=== PATIENT | male | born 1930 | race Caucasian/White ===

== ENCOUNTER 2017-06-28 15:00 | Inpatient (IN) | payer MEDICARE, OTHER ==
[~2017-06-28] VITALS: Ht 180.3 cm; Wt 95.0 kg
[2017-06-28] MEDS ORDERED: IV NORMAL SALINE 1,000ML 1,000 ML IV ONE (15:15)
--- NOTE | 2017-06-28 15:58 | RAD ---
Portable chest, 06/28/2017: History: Cough The patient is moderately rotated to the left. The heart size is normal. There is calcific plaquing of the aorta. The small left lower chest opacity may be a granuloma. There is minimal linear scarring or atelectasis in the left base. There is a suggestion of mild right infrahilar atelectasis/infiltrate, although poorly defined due to patient rotation and the overlying spine. No pleural fluid or pneumothorax is seen. Severe arthritic changes are present at the shoulders, worse on the right. IMPRESSION: Mild right infrahilar atelectasis/infiltrate.
[2017-06-28 15:59] LABS: INFLUENZA A PATIENT NEGATIVE (NEGATIVE); INFLUENZA B PATIENT NEGATIVE (NEGATIVE)
[2017-06-28] MEDS ORDERED: IPRATRPIUM/ALBUTEROL 0.5/2.5MG 3 ML NEBU. NEB ONE (16:00)
[2017-06-28] MEDS ORDERED: ASPI325T8 PO (16:10)
[2017-06-28] MEDS ORDERED: GUAI12003 PO (16:10)
[2017-06-28] MEDS ORDERED: CHOL500016 PO (16:10)
[2017-06-28] MEDS ORDERED: SERT100T PO (16:10)
[2017-06-28] MEDS ORDERED: LISI-334 PO (16:10)
[2017-06-28] MEDS ORDERED: NABU500T PO (16:10)
[2017-06-28] MEDS ORDERED: NYST1000 PO (16:10)
[2017-06-28] MEDS ORDERED: TRAM50TA PO (16:10)
[2017-06-28] MEDS ORDERED: ENOX40DI SQ (16:10)
[2017-06-28] MEDS ORDERED: VIT1CAPS12 PO (16:10)
[2017-06-28] MEDS ORDERED: HYDR25TA9 PO (16:10)
[2017-06-28] MEDS ORDERED: SIMV40TA3 PO (16:10)
[2017-06-28 16:15] LABS: BASO # 0.1 x10^3/uL (0.0-0.2); BASO % 1 % (0-3); EOS # 0.9 x10^3/uL (0.0-0.7); EOS % 8 % (0-3); HEMATOCRIT 37.6 % (39.0-53.0); HEMOGLOBIN 12.6 g/dL (13.0-17.5); LYMPH # 1.9 x10^3/uL (1.0-4.8); LYMPH % 18 % (24-48); MEAN CORPUSCULAR HEMOGLOBIN 31 pg (25-35); MEAN CORPUSCULAR HGB CONC 33 g/dL (31-37); MEAN CORPUSCULAR VOLUME 92 fL (79-100); MONO # 1.1 x10^3/uL (0.0-1.1); MONO % 10 % (0-9); NEUT # 6.7 x10^3uL (1.8-7.7); NEUT % 63 % (31-73); PLATELET COUNT 436 x10^3/uL (140-400); RED BLOOD COUNT 4.11 x10^6/uL (4.30-5.70); WHITE BLOOD COUNT 10.6 x10^3/uL (4.0-11.0)
[2017-06-28 16:24] LABS: CREATININE 1.4 mg/dL (0.7-1.3); GFR 48.1; POTASSIUM 4.5 mmol/L (3.5-5.1)
[2017-06-28] MEDS ORDERED: AZITHROMYCIN 250 MG TABLET. PO ONE (16:45)
[2017-06-28] MEDS ORDERED: IV NORMAL SALINE 50ML 50 ML ONE ×2 (16:52→17:53)
[2017-06-28] MEDS ORDERED: cefTRIAXone SODIUM 1 GM VIAL IV ONE (16:52)
--- NOTE | 2017-06-28 16:58 | PHYS DOC ---
Past History Past Medical History: No Pertinent History, High Cholesterol, Hip Fracture, Hypertension, Other Past Surgical History: Hip Replacement Alcohol Use: None Drug Use: None Adult General Chief Complaint Chief Complaint: COUGH HPI HPI Patient is a 86 year old M who presents with cough and shortness of breath over the past 2-3 weeks with particular worsening over the past 3 days. Arthritic hip fracture 3 weeks ago which resulted in a hip replacement and an extended hospital stay of 2 weeks and swing bed. He was discharged a week ago and [facility] a [facility] which is where he currently resides. Over the past 3 days he feels that his breathing has been worse. His symptoms are worse with activity and improved with rest. His cough is productive of greenish sputum. He also notes associated chest pain with cough. He describes occasional chills but no fever. He has no other associated symptoms. He has no exacerbating or alleviating factors. He is currently nonweightbearing due to his left hip fracture which is status post hip replacement. This repair was complicated due to reported osteoporosis which required a pin to be driven down the shaft of his femur. He had a right hip fracture 3 years ago which required 2 surgeries to repair. His daughter states that his nonweightbearing status is to prevent the need for a second surgery. He is hard of hearing and has macular degeneration which limited his history. Review of Systems Review of Systems Constitutional: Negative except history of present illness Eyes: Denies change in visual acuity, redness, or eye pain [] HENT: Denies nasal congestion or sore throat [] Respiratory: Negative except history of present illness Cardiovascular: No additional information not addressed in HPI [] GI: Denies abdominal pain, nausea, vomiting, bloody stools or diarrhea [] : Denies dysuria or hematuria [] Musculoskeletal: Denies back pain or joint pain [] Integument: Denies rash or skin lesions [] Neurologic: Denies headache, focal weakness or sensory changes [] Endocrine: Denies polyuria or polydipsia [] All other systems were reviewed and found to be within normal limits, except as documented in this note. Family History Family History Noncontributory Current Medications Current Medications Medications reviewed Current Medications Medications (Trade) Dose Ordered Sig/Eleanor Start Time Stop Time Status Last Admin Dose Admin Albuterol/ Ipratropium (Duoneb) 3 ml 1X ONCE 06/28/17 16:00 06/28/17 16:01 DC 06/28/17 16:04 3 ML Azithromycin (Zithromax) 500 mg 1X ONCE 06/28/17 16:45 06/28/17 16:46 DC Ceftriaxone Sodium 1 gm/ Sodium Chloride 50 ml @ 100 mls/hr 1X ONCE 06/28/17 16:45 06/28/17 17:14 Sodium Chloride 1,000 ml @ 1,000 mls/hr 1X ONCE 06/28/17 15:15 06/28/17 16:14 DC 06/28/17 15:15 1,000 MLS/HR Allergies Allergies Allergies Coded Allergies Type Severity Reaction Last Updated Verified No Known Drug Allergies 06/28/17 No Physical Exam Physical Exam Constitutional: Well developed, well nourished, non-toxic appearance. HENT: Normocephalic, atraumatic, bilateral external ears normal, oropharynx moist, no oral exudates, nose normal. [] Eyes: PERRLA, EOMI, conjunctiva normal, no discharge. [] Neck: Normal range of motion, no tenderness, supple, no stridor. [] Cardiovascular:Heart rate regular rhythm, no murmur [] Lungs & Thorax: Diminished sounds bilaterally with rhonchi noted in the right base, Mild shortness of breath with minimal activity such as sitting up in bed Abdomen: Bowel sounds normal, soft, no tenderness, no masses, no pulsatile masses. [] Skin: Warm, dry, no erythema, no rash. [] Extremities: No tenderness, no cyanosis, no clubbing, ROM intact, no edema. [] Neurologic: Alert and oriented X 2, he is currently nonweightbearing due to his recent left hip fracture, he is accompanied by his daughter who states that his mental status is at baseline Psychologic: Affect normal, judgement normal, mood normal. [] Current Patient Data Vital Signs Vital Signs Date Time Temp Pulse Resp B/P (MAP) Pulse Ox O2 Delivery O2 Flow Rate FiO2 06/28/17 16:04 98 Room Air 06/28/17 15:41 97.5 78 18 Lab Results Laboratory Tests Test 06/28/17 15:25 06/28/17 16:00 Influenza Type A (Rapid) Negative (NEGATIVE) Influenza Type B (Rapid) Negative (NEGATIVE) White Blood Count 10.6 x10^3/uL (4.0-11.0) Red Blood Count 4.11 x10^6/uL (4.30-5.70) L Hemoglobin 12.6 g/dL (13.0-17.5) L Hematocrit 37.6 % (39.0-53.0) L Mean Corpuscular Volume 92 fL (79-100) Mean Corpuscular Hemoglobin 31 pg (25-35) Mean Corpuscular Hemoglobin Concent 33 g/dL (31-37) Red Cell Distribution Width 15.0 % (11.5-14.5) H Platelet Count 436 x10^3/uL (140-400) H Neutrophils (%) (Auto) 63 % (31-73) Lymphocytes (%) (Auto) 18 % (24-48) L Monocytes (%) (Auto) 10 % (0-9) H Eosinophils (%) (Auto) 8 % (0-3) H Basophils (%) (Auto) 1 % (0-3) Neutrophils # (Auto) 6.7 x10^3uL (1.8-7.7) Lymphocytes # (Auto) 1.9 x10^3/uL (1.0-4.8) Monocytes # (Auto) 1.1 x10^3/uL (0.0-1.1) Eosinophils # (Auto) 0.9 x10^3/uL (0.0-0.7) H Basophils # (Auto) 0.1 x10^3/uL (0.0-0.2) Sodium Level 141 mmol/L (136-145) Potassium Level 4.5 mmol/L (3.5-5.1) Chloride Level 103 mmol/L (98-107) Carbon Dioxide Level 28 mmol/L (21-32) Anion Gap 10 (6-14) Blood Urea Nitrogen 43 mg/dL (8-26) H Creatinine 1.4 mg/dL (0.7-1.3) H Estimated GFR (Cockcroft-Gault) 48.1 Glucose Level 114 mg/dL (70-99) H Calcium Level 9.0 mg/dL (8.5-10.1) EKG EKG [] Radiology/Procedures Radiology/Procedures Chest x-ray Impressions: Right-sided infiltrate Course & Med Decision Making Course & Med Decision Making Pertinent Labs and Imaging studies reviewed. (See chart for details) Due to his recent and prolonged hospital stay Marc is at risk for resistant infection. Symptoms are most consistent with hospital associated pneumonia. Initially an intermittent catheterization was done to obtain a urine sample however no urine was obtained. Bladder scan followed showing 500 mL. Due to concern for obstruction an indwelling catheter was placed. Dragon Disclaimer Dragon Disclaimer This electronic medical record was generated, in whole or in part, using a voice recognition dictation system. Departure Departure: Impression: Primary Impression: Healthcare-associated pneumonia Disposition: ADMITTED INPATIENT Condition: STABLE Referrals: JENSEN VALDEZ DO (PCP) ANITA ESCOTO MD Jun 28, 2017 16:58
[2017-06-28] MEDS ORDERED: VANCOMYCIN 1 GM in IV NORMAL SALINE 250ML 250 ML IV ONE (17:30)
[2017-06-28] MEDS ORDERED: PIPERACILLIN/TAZOBACTAM 3.375 GM in IV NORMAL SALINE 50ML 50 ML IV ONE (17:45)
[2017-06-28] MEDS ORDERED: PIPERACILLIN/TAZOBACTAM 3.375 GM VIAL IV ONE (17:54)
[2017-06-28 18:24] LABS: BILIRUBIN,URINE NEG (NEG); CLARITY,URINE CLEAR; COLOR,URINE YELLOW; GLUCOSE,URINE NEG (NEG)
[2017-06-28 18:25] LABS: NITRITE,URINE NEG (NEG); UROBILINOGEN,URINE 0.2 mg/dL (0.2 mg/dL)
[2017-06-28 18:26] LABS: BACTERIA,URINE 0 /HPF (0-FEW); SQUAMOUS EPITHELIAL CELL,UR FEW /LPF; WBC,URINE OCC /HPF (0-4)
[2017-06-28 19:12] VITALS: BP 96/48
[2017-06-28] MEDS ORDERED: ONDANSETRON PF 4 MG/2 ML VIAL. IV PRN (19:15)
[2017-06-28] MEDS: IV NORMAL SALINE 1,000ML 1,000 ML IV SCH ×3 (19:30→22:34)
[2017-06-28] MEDS ORDERED: ENOX30DI3 SQ (20:53)
[2017-06-28] MEDS ORDERED: MULT1TAB52 PO ×2 (20:53)
[2017-06-28] MEDS ORDERED: NYST15PO9 TP (20:53)
[2017-06-28] MEDS ORDERED: PIP/TAZO PER PHARMACY MC PRN (21:15)
[2017-06-28] MEDS ORDERED: IV NORMAL SALINE 500ML 500 ML IV PRN (21:30)
[2017-06-28] MEDS ORDERED: NOREPINEPHRINE BITARTRATE 16 MG in IV NORMAL SALINE 250ML 250 ML IV PRN (22:00)
[2017-06-28 22:12] VITALS: BP 123/68
[2017-06-28] MEDS: ENOXAPARIN 40 MG/0.4 ML DISP.SYRIN. SQ SCH (22:32)
[2017-06-28] MEDS: SIMVASTATIN 40 MG TABLET. PO SCH (22:32)
[2017-06-28] MEDS: PIPERACILLIN/TAZOBACTAM 4.5 GM in IV NORMAL SALINE 50ML 50 ML IV SCH (23:41)
[2017-06-29] MEDS ORDERED: IPRATRPIUM/ALBUTEROL 0.5/2.5MG 3 ML NEBU. ONE ×2 (00:13→05:20)
[2017-06-29] MEDS: IV NORMAL SALINE 1,000ML 1,000 ML IV SCH ×3 (00:53→12:13)
[2017-06-29 05:24] VITALS: BP 149/67
[2017-06-29] MEDS: PIPERACILLIN/TAZOBACTAM 4.5 GM in IV NORMAL SALINE 50ML 50 ML IV SCH ×3 (05:43→18:51)
[2017-06-29] MEDS: IPRATRPIUM/ALBUTEROL 0.5/2.5MG 3 ML NEBU. NEB SCH ×4 (06:00→21:06)
[2017-06-29 06:27] LABS: BASO # 0.1 x10^3/uL (0.0-0.2); BASO % 1 % (0-3); EOS # 0.5 x10^3/uL (0.0-0.7); EOS % 5 % (0-3); HEMATOCRIT 30.3 % (39.0-53.0); HEMOGLOBIN 10.1 g/dL (13.0-17.5); LYMPH # 1.8 x10^3/uL (1.0-4.8); LYMPH % 19 % (24-48); MEAN CORPUSCULAR HEMOGLOBIN 31 pg (25-35); MEAN CORPUSCULAR HGB CONC 33 g/dL (31-37); MEAN CORPUSCULAR VOLUME 91 fL (79-100); MONO % 10 % (0-9); NEUT # 6.4 x10^3uL (1.8-7.7); NEUT % 65 % (31-73); PLATELET COUNT 349 x10^3/uL (140-400); RED BLOOD COUNT 3.32 x10^6/uL (4.30-5.70); RED CELL DISTRIBUTION WIDTH 14.7 % (11.5-14.5); WHITE BLOOD COUNT 9.9 x10^3/uL (4.0-11.0)
[2017-06-29 06:36] LABS: CALCIUM 8.1 mg/dL (8.5-10.1); CREATININE 1.2 mg/dL (0.7-1.3); GFR 57.4; POTASSIUM 3.8 mmol/L (3.5-5.1)
[2017-06-29] MEDS: LACTOBACILLUS RHAMNOSUS GG 1 CAPSULE. PO SCH ×2 (08:23→21:16)
[2017-06-29] MEDS: ASPIRIN 325 MG TABLET PO SCH ×2 (08:23→21:16)
[2017-06-29] MEDS: CHOLECALCIFEROL (VITAMIN D3) 1,000 UNIT TABLET PO SCH (08:23)
[2017-06-29] MEDS: SERTRALINE 100 MG TABLET. PO SCH (08:23)
[2017-06-29] MEDS: NYSTATIN TOPICAL POWDER 15GM BOTTLE. TP SCH ×2 (08:24→21:17)
[2017-06-29] MEDS: traMADol 50 MG TABLET PO PRN (08:43)
[2017-06-29] MEDS: guaiFENesin DM 600/30MG 1 TAB TAB.ER.12H PO SCH ×2 (09:00→21:16)
[2017-06-29] MEDS ORDERED: IOHEXOL 300 MG/ML 75 ML VIAL. IV ONE (10:00)
[2017-06-29] MEDS ORDERED: CONTRAST GIVEN MC PRN (10:15)
--- NOTE | 2017-06-29 11:05 | RAD ---
CTA chest with contrast 06/29/2017 Clinical indication: Dyspnea, shortness of breath. Comparison: Chest x-ray 06/28/2017 Technique: Multiple CTA images of the chest were obtained following the intravenous administration of 60 mL Omnipaque 300. MIPS were obtained of the chest. PQRS Compliance Statement: One or more of the following individualized dose reduction techniques were utilized for this examination: 1. Automated exposure control 2. Adjustment of the mA and/or kV according to patient size 3. Use of iterative reconstruction technique CTA chest findings: There is suboptimal evaluation of the subsegmental pulmonary arteries. The central and major segmental pulmonary arteries are patent without focal filling defect. No evidence of right heart strain. Heart size is normal without significant pericardial effusion. There are three-vessel coronary artery calcifications. The thoracic aorta is normal in caliber with moderate diffuse calcified atheromatous disease. No axillary, mediastinal or obvious hilar lymphadenopathy. Examination of the parenchyma is limited due to respiratory motion. Central airways are patent. There are patchy peribronchial vascular opacities in the dependent lower lobes. Scattered areas of pleural-parenchymal scarring throughout both lungs. There are trace bilateral pleural effusions. There are no destructive osseous lesions. There is an intraosseous hemangioma at T4. There is an ununited age-indeterminate nondisplaced fracture lateral left third rib. Age-indeterminate ununited nondisplaced left lateral seventh rib fracture deformity. There is a chronic comminuted fracture of the proximal right humerus. Age-indeterminate ununited lateral right rib fracture deformity. Impression: 1. Suboptimal evaluation of subsegmental pulmonary arteries due to motion. No central or major segmental pulmonary artery filling defect to suggest pulmonary embolism. 2. Patchy bibasilar peribronchial vascular opacities which may represent aspiration or multifocal infection. 3. Trace pleural effusions. 4. Coronary artery calcifications. 5. Chronic comminuted ununited proximal right humeral fracture and multiple nondisplaced age-indeterminate bilateral rib fracture deformities. Clinical correlation is recommended
[2017-06-29 11:25] VITALS: BP 110/62
[2017-06-29] MEDS ORDERED: MELOXICAM 7.5 MG TABLET PO SCH (11:30)
[2017-06-29] MEDS ORDERED: hydroCHLOROthiazide 25 MG TABLET PO SCH (11:30)
[2017-06-29] MEDS ORDERED: MULTIVITAMIN with MINERAL TABLET. PO SCH (11:30)
[2017-06-29] MEDS: LISINOPRIL 20 MG TABLET PO SCH (11:40)
--- NOTE | 2017-06-29 14:20 | HP ---
ADMIT DATE: 06/28/2017 REASON FOR ADMISSION: The patient states cough. HISTORY OF PRESENT ILLNESS: This is an 86-year-old gentleman who resides at [facility] who states that yesterday they could not keep him awake and that he was coughing, bringing up some thick sputum and so he was brought to the hospital and found to have an x-ray suspicious for pneumonia. PAST MEDICAL HISTORY: The patient broke his left leg 3 weeks ago and was in the hospital that time where it was repaired and he has been undergoing therapy at [facility]. He also has a history of a broken right hip. Other medical problems include anemia, hypertension, weakness, osteoarthritis, macular degeneration with vision impairment, depression, former smoker, hyperlipidemia, significant fall risk and hard of hearing, does not wear hearing aids. ALLERGIES: None. MEDICATIONS: Reviewed and are available on the MAR. SOCIAL HISTORY: Again, he is at [facility]. 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 He did previously live in a house with his daughter where he had his own apartment for him, but again like I said he has been at [facility], undergoing rehab. REVIEW OF SYSTEMS: As per the HPI. the patient states he has a slight sore throat. Denies fever, positive cough, positive for thick sputum. Otherwise, some pain in the left leg, otherwise negative. OBJECTIVE: VITAL SIGNS: Blood pressure 110/62, pulse 92, respirations 22, pulse ox 92% on room air, height 71 inches, weight 211.25 pounds. GENERAL: Pleasant elderly male who is slightly short of breath, hearing is slightly impaired, but easily understand loud words. HEENT: His pupils are small. His eyes are clear. His nose is patent. Throat was clear. NECK: Supple. LUNGS: With a few scattered wheezes. CARDIOVASCULAR: Regular rhythm and rate with a 2/6 systolic murmur. ABDOMEN: Soft, nontender. EXTREMITIES: With 2+ edema. LABORATORY DATA: CBC: White blood cell count 10.6, upper limit of normal; hemoglobin 10.1; hematocrit 30.3. Chemistry: Lactic acid was initially 2.2. BUN was 43, creatinine 1.4, now 33 and 1.2. Urinalysis clear. IMAGING: Chest x-ray, CT of the chest, no PE, but patchy bibasilar opacities representing probable aspiration, pneumonia or multifocal infection. ASSESSMENT: 1. Lactic acidosis. 2. Acute kidney injury secondary to volume depletion. 3. Aspiration pneumonia. 4. Status post fracture of the left leg, undergoing rehabilitation. 5. Significant deep venous thrombosis risk. 6. Pain. 7. Acute respiratory failure. PLAN: IV antibiotics, oxygen, DVT prophylaxis. AUGUSTO LAU DO DR: DARON/cleo JOB#: [id number] / [id number]
[2017-06-29] MEDS: ACETAMINOPHEN 325 MG TABLET PO SCH ×2 (14:40→21:16)
[2017-06-29 14:53] VITALS: BP 128/69
[2017-06-29 18:43] VITALS: BP 110/65
[2017-06-29] MEDS ORDERED: NABUMETONE PO SCH (21:00)
[2017-06-29] MEDS: SIMVASTATIN 40 MG TABLET. PO SCH (21:16)
[2017-06-29] MEDS: ENOXAPARIN 40 MG/0.4 ML DISP.SYRIN. SQ SCH (21:17)
[2017-06-29 23:20] VITALS: BP 128/65
[2017-06-30] MEDS: PIPERACILLIN/TAZOBACTAM 4.5 GM in IV NORMAL SALINE 50ML 50 ML IV SCH ×5 (00:11→23:56)
[2017-06-30] MEDS: IV NORMAL SALINE 1,000ML 1,000 ML IV SCH ×3 (01:00→20:39)
[2017-06-30 05:09] VITALS: BP 133/55
[2017-06-30] MEDS: ACETAMINOPHEN 325 MG TABLET PO SCH ×3 (05:38→20:35)
[2017-06-30] MEDS: IPRATRPIUM/ALBUTEROL 0.5/2.5MG 3 ML NEBU. NEB SCH ×4 (05:48→20:00)
[2017-06-30 07:10] LABS: BASO # 0.1 x10^3/uL (0.0-0.2); BASO % 1 % (0-3); EOS % 11 % (0-3); HEMATOCRIT 31.5 % (39.0-53.0); HEMOGLOBIN 10.8 g/dL (13.0-17.5); LYMPH # 2.7 x10^3/uL (1.0-4.8); LYMPH % 28 % (24-48); MEAN CORPUSCULAR HEMOGLOBIN 31 pg (25-35); MEAN CORPUSCULAR HGB CONC 34 g/dL (31-37); MEAN CORPUSCULAR VOLUME 91 fL (79-100); MONO # 0.9 x10^3/uL (0.0-1.1); MONO % 10 % (0-9); NEUT % 51 % (31-73); PLATELET COUNT 313 x10^3/uL (140-400); RED BLOOD COUNT 3.46 x10^6/uL (4.30-5.70); RED CELL DISTRIBUTION WIDTH 14.7 % (11.5-14.5); WHITE BLOOD COUNT 9.7 x10^3/uL (4.0-11.0)
[2017-06-30 07:32] LABS: ALBUMIN 2.3 g/dL (3.4-5.0); ALBUMIN/GLOBULIN RATIO 0.5 (1.0-1.7); CALCIUM 8.4 mg/dL (8.5-10.1); CREATININE 1.3 mg/dL (0.7-1.3); GFR 52.3; MAGNESIUM 1.9 mg/dL (1.8-2.4); TOTAL BILIRUBIN 0.6 mg/dL (0.2-1.0); TOTAL PROTEIN 6.6 g/dL (6.4-8.2)
[2017-06-30] MEDS: SERTRALINE 100 MG TABLET. PO SCH (08:20)
[2017-06-30] MEDS: MULTIVITAMIN I-VITE TABLET. PO SCH (08:20)
[2017-06-30] MEDS: LACTOBACILLUS RHAMNOSUS GG 1 CAPSULE. PO SCH ×2 (08:21→20:35)
[2017-06-30] MEDS: guaiFENesin DM 600/30MG 1 TAB TAB.ER.12H PO SCH ×2 (08:21→20:35)
[2017-06-30] MEDS: LISINOPRIL 20 MG TABLET PO SCH (08:22)
[2017-06-30] MEDS: ASPIRIN 325 MG TABLET PO SCH ×2 (08:23→20:35)
[2017-06-30] MEDS: CHOLECALCIFEROL (VITAMIN D3) 1,000 UNIT TABLET PO SCH (08:23)
[2017-06-30] MEDS: NYSTATIN TOPICAL POWDER 15GM BOTTLE. TP SCH ×2 (10:39→20:39)
[2017-06-30 10:59] VITALS: BP 135/65
[2017-06-30] MEDS ORDERED: FUROSEMIDE 40 MG/4 ML VIAL IVP ONE (13:15)
[2017-06-30 14:35] VITALS: BP 137/68
[2017-06-30 20:04] VITALS: BP_SYST 95; BP_SYST 98; BP_DIAS 50; BP_DIAS 57
[2017-06-30] MEDS: SIMVASTATIN 40 MG TABLET. PO SCH (20:35)
[2017-06-30] MEDS: ENOXAPARIN 40 MG/0.4 ML DISP.SYRIN. SQ SCH (20:36)
[2017-06-30 23:35] VITALS: BP 135/61
[2017-06-30] MEDS: traMADol 50 MG TABLET PO PRN (23:57)
--- NOTE | 2017-07-01 02:22 | PN ---
DATE: 06/30/2017 PROBLEMS: 1. Lactic acidosis. 2. Acute kidney injury secondary to volume depletion. 3. Aspiration pneumonia. 4. Status post fracture of the left leg. 5. Deep venous thrombosis risk. 6. Pain management. 7. Acute respiratory failure. 8. Bilateral deep tissue injuries of the heel. 9. Stage II small pressure ulcer of the coccyx. SUBJECTIVE: The patient is an 86-year-old male who was admitted for underlying pneumonia. He has been well hydrated now to the point of fluid overload as he has been getting IV fluids and his hydrochlorothiazide was held. The wound nurse has seen him and treated his wounds. He will need heel pads, otherwise he does not have any specific complaints. OBJECTIVE: VITAL SIGNS: Blood pressure 135/55, pulse 93, temperature 97.9, respirations 20, pulse ox 93% on room air. His weight is pending. GENERAL: Color is pale. He is alert. HEENT: His tongue is moist. NECK: Supple. LUNGS: With a few scattered wheezes. CARDIOVASCULAR: Regular rhythm and rate with a 2/6 systolic murmur. ABDOMEN: Large and obese. EXTREMITIES: With 3+ edema. LABORATORY DATA: Hemoglobin 10.8, hematocrit 31.5. PLAN: IV Lasix. Continue antibiotics, PT, OT, wound care, plan for discharge. AUGUSTO LAU DO DR: DARON/cleo JOB#: [id number] / [id number]
[2017-07-01] MEDS: IV NORMAL SALINE 1,000ML 1,000 ML IV SCH (03:43)
[2017-07-01] MEDS: IPRATRPIUM/ALBUTEROL 0.5/2.5MG 3 ML NEBU. NEB SCH ×2 (05:51→09:47)
[2017-07-01 06:05] VITALS: BP 156/72
[2017-07-01] MEDS: PIPERACILLIN/TAZOBACTAM 4.5 GM in IV NORMAL SALINE 50ML 50 ML IV SCH (06:05)
[2017-07-01] MEDS: ACETAMINOPHEN 325 MG TABLET PO SCH (06:05)
[2017-07-01 06:25] LABS: BASO # 0.1 x10^3/uL (0.0-0.2); BASO % 1 % (0-3); EOS # 0.9 x10^3/uL (0.0-0.7); EOS % 7 % (0-3); HEMATOCRIT 32.9 % (39.0-53.0); HEMOGLOBIN 10.9 g/dL (13.0-17.5); LYMPH # 1.7 x10^3/uL (1.0-4.8); LYMPH % 15 % (24-48); MEAN CORPUSCULAR HEMOGLOBIN 30 pg (25-35); MEAN CORPUSCULAR HGB CONC 33 g/dL (31-37); MEAN CORPUSCULAR VOLUME 91 fL (79-100); MONO # 1.2 x10^3/uL (0.0-1.1); MONO % 10 % (0-9); NEUT # 8.2 x10^3uL (1.8-7.7); NEUT % 68 % (31-73); PLATELET COUNT 340 x10^3/uL (140-400); RED BLOOD COUNT 3.61 x10^6/uL (4.30-5.70); RED CELL DISTRIBUTION WIDTH 14.6 % (11.5-14.5)
[2017-07-01 06:39] LABS: ALBUMIN 2.4 g/dL (3.4-5.0); ALBUMIN/GLOBULIN RATIO 0.5 (1.0-1.7); CALCIUM 8.5 mg/dL (8.5-10.1); CREATININE 1.3 mg/dL (0.7-1.3); GFR 52.3; MAGNESIUM 1.9 mg/dL (1.8-2.4); POTASSIUM 4.2 mmol/L (3.5-5.1); TOTAL BILIRUBIN 0.6 mg/dL (0.2-1.0)
[2017-07-01] MEDS: SERTRALINE 100 MG TABLET. PO SCH (08:14)
[2017-07-01] MEDS: ASPIRIN 325 MG TABLET PO SCH (08:14)
[2017-07-01] MEDS: MULTIVITAMIN I-VITE TABLET. PO SCH (08:14)
[2017-07-01] MEDS: LACTOBACILLUS RHAMNOSUS GG 1 CAPSULE. PO SCH (08:14)
[2017-07-01] MEDS: guaiFENesin DM 600/30MG 1 TAB TAB.ER.12H PO SCH (08:14)
[2017-07-01] MEDS: LISINOPRIL 20 MG TABLET PO SCH (08:15)
[2017-07-01] MEDS: CHOLECALCIFEROL (VITAMIN D3) 1,000 UNIT TABLET PO SCH (08:15)
[2017-07-01] MEDS: NYSTATIN TOPICAL POWDER 15GM BOTTLE. TP SCH (08:21)
--- NOTE | 2017-07-01 08:32 | RAD ---
Single view of the Chest 07/01/2017 3:12 PM Indication: pneumonia Comparison: Chest radiograph, June 28, 2017 Findings: Lordotic projection noted. Decreased inspiratory volumes noted in the interim. No pneumothorax is identified. Linear opacities are seen in the right midlung lung bases suggestive of atelectasis. Medial basilar opacity on the right is improved in the interim. No other new infiltrate is seen. Heart size is within normal limits. Aortic calcification again noted. Severe degenerative changes bilateral shoulders are seen without evidence of acute osseous abnormality. Impression: Decreased inspiratory volumes in the interim with scattered areas of atelectasis.
--- NOTE | 2017-07-01 09:51 | PDOC3 ---
Discharge Summary Visit Information Date of Admission: Jun 28, 2017 Date of Discharge: Jul 01, 2017 Final Diagnosis Problems Medical Problems: (1) Healthcare-associated pneumonia Status: Acute BLEMS: 1. Lactic acidosis. 2. Acute kidney injury secondary to volume depletion. 3. Aspiration pneumonia. 4. Status post fracture of the left leg. 5. Deep venous thrombosis risk. 6. Pain management. 7. Acute respiratory failure. 8. Bilateral deep tissue injuries of the heel. 9. Stage II small pressure ulcer of the coccyx. 10. HOARSENESS IN A FORMER SMOKER 11.DVT PROPHYLAXIS 11. WEAKNESS Problems: Brief Hospital Course Allergies Allergies Coded Allergies Type Severity Reaction Last Updated Verified No Known Drug Allergies 06/28/17 No Vital Signs Vital Signs Date Time Temp Pulse Resp B/P (MAP) Pulse Ox O2 Delivery O2 Flow Rate FiO2 07/01/17 08:15 88 07/01/17 08:00 Room Air 07/01/17 06:05 98.2 20 156/72 (100) 94 1.0 Lab Results Laboratory Tests Test 06/30/17 06:15 07/01/17 05:48 White Blood Count 9.7 x10^3/uL (4.0-11.0) 12.0 x10^3/uL (4.0-11.0) Red Blood Count 3.46 x10^6/uL (4.30-5.70) 3.61 x10^6/uL (4.30-5.70) Hemoglobin 10.8 g/dL (13.0-17.5) 10.9 g/dL (13.0-17.5) Hematocrit 31.5 % (39.0-53.0) 32.9 % (39.0-53.0) Mean Corpuscular Volume 91 fL (79-100) 91 fL (79-100) Mean Corpuscular Hemoglobin 31 pg (25-35) 30 pg (25-35) Mean Corpuscular Hemoglobin Concent 34 g/dL (31-37) 33 g/dL (31-37) Red Cell Distribution Width 14.7 % (11.5-14.5) 14.6 % (11.5-14.5) Platelet Count 313 x10^3/uL (140-400) 340 x10^3/uL (140-400) Neutrophils (%) (Auto) 51 % (31-73) 68 % (31-73) Lymphocytes (%) (Auto) 28 % (24-48) 15 % (24-48) Monocytes (%) (Auto) 10 % (0-9) 10 % (0-9) Eosinophils (%) (Auto) 11 % (0-3) 7 % (0-3) Basophils (%) (Auto) 1 % (0-3) 1 % (0-3) Neutrophils # (Auto) 5.0 x10^3uL (1.8-7.7) 8.2 x10^3uL (1.8-7.7) Lymphocytes # (Auto) 2.7 x10^3/uL (1.0-4.8) 1.7 x10^3/uL (1.0-4.8) Monocytes # (Auto) 0.9 x10^3/uL (0.0-1.1) 1.2 x10^3/uL (0.0-1.1) Eosinophils # (Auto) 1.0 x10^3/uL (0.0-0.7) 0.9 x10^3/uL (0.0-0.7) Basophils # (Auto) 0.1 x10^3/uL (0.0-0.2) 0.1 x10^3/uL (0.0-0.2) Sodium Level 139 mmol/L (136-145) 139 mmol/L (136-145) Potassium Level 4.0 mmol/L (3.5-5.1) 4.2 mmol/L (3.5-5.1) Chloride Level 107 mmol/L (98-107) 106 mmol/L (98-107) Carbon Dioxide Level 23 mmol/L (21-32) 24 mmol/L (21-32) Anion Gap 9 (6-14) 9 (6-14) Blood Urea Nitrogen 22 mg/dL (8-26) 16 mg/dL (8-26) Creatinine 1.3 mg/dL (0.7-1.3) 1.3 mg/dL (0.7-1.3) Estimated GFR (Cockcroft-Gault) 52.3 52.3 BUN/Creatinine Ratio 17 (6-20) 12 (6-20) Glucose Level 102 mg/dL (70-99) 106 mg/dL (70-99) Calcium Level 8.4 mg/dL (8.5-10.1) 8.5 mg/dL (8.5-10.1) Magnesium Level 1.9 mg/dL (1.8-2.4) 1.9 mg/dL (1.8-2.4) Total Bilirubin 0.6 mg/dL (0.2-1.0) 0.6 mg/dL (0.2-1.0) Aspartate Amino Transf (AST/SGOT) 26 U/L (15-37) 25 U/L (15-37) Alanine Aminotransferase (ALT/SGPT) 38 U/L (16-63) 36 U/L (16-63) Alkaline Phosphatase 96 U/L (46-116) 95 U/L (46-116) Total Protein 6.6 g/dL (6.4-8.2) 7.0 g/dL (6.4-8.2) Albumin 2.3 g/dL (3.4-5.0) 2.4 g/dL (3.4-5.0) Albumin/Globulin Ratio 0.5 (1.0-1.7) 0.5 (1.0-1.7) Brief Hospital Course Mr. Fitzgerald is a 86 old WHO WAS ADMITTED AFTER BEING SHORT OF BREATH AT THE NURSING FACILITY HE WAS AT. HE HAD A HISTORY OF FALLING, BREAKING HIS LEFT LEG AND HAVING TO UNDERGO SURGERY 3 WEEKS AGO. HE IS NON WEIGHT BEARING ON THAT LEG. HE IS WEAK . CT OF CHEST INDICATED PNEUMONIA AND THIS WOULD BE HOSPITAL ACQUIRED. HE WAS TREATED WITH ANTIBIOTICS. HE WILL BE SENT OUT ON ANTIBIOTICS. HE RECIEVED IV FLUIDS. HE IS REQUIRING A HUYEN LIFT AT THIS TIME AND HAS NOT MADE ANY PROGRESS FAR HIS REHB GOES. HE WAS SEEN BY [facility] AND THEY RECOMMEND AN EVALUATION BY ENT FOR HOARSENESS. Discharge Information Condition at Discharge: Improved Dischare Medications Current Medications Albuterol/ Ipratropium (Duoneb) 3 ml 1X ONCE NEB Last administered on 16:04; Start 06/28/17 at 16:00; Stop 06/28/17 at 16:01; Status DC Sodium Chloride 1,000 ml @ 1,000 mls/hr 1X ONCE IV Last administered on 11/14 /17at 15:15; Start 06/28/17 at 15:15; Stop 06/28/17 at 16:14; Status DC Ceftriaxone Sodium 1 gm/ Sodium Chloride 50 ml @ 100 mls/hr 1X ONCE IV Last administered on 06/28/17t 17:10; Start 06/28/17 at 16:45; Stop 06/28/17 at 17 :14; Status DC Azithromycin (Zithromax) 500 mg 1X ONCE PO ; Start 06/28/17 at 16:45; Stop at 17:53; Status DC Sodium Chloride 50 ml @ As Directed STK-MED ONCE .ROUTE ; Start 06/28/17 at 16: 52; Stop 06/28/17 at 16:53; Status DC Ceftriaxone Sodium (Rocephin) 1 gm STK-MED ONCE IV ; Start 06/28/17 at 16:52; Stop 06/28/17 at 16:53; Status DC Piperacillin Sod/ Tazobactam Sod 3.375 gm/Sodium Chloride 50 ml @ 100 mls/hr 1X ONCE IV Last administered on 06/28/17t 18:00; Start 06/28/17 at 17:45; Stop 06/28/17 at 18:14; Status DC Vancomycin HCl 1 gm/Sodium Chloride 250 ml @ 250 mls/hr 1X ONCE IV ; Start at 17:30; Stop 06/28/17 at 17:34; Status DC Sodium Chloride 50 ml @ As Directed STK-MED ONCE .ROUTE ; Start 06/28/17 at 17: 53; Stop 06/28/17 at 17:54; Status DC Piperacillin Sod/ Tazobactam Sod (Zosyn) 3.375 gm STK-MED ONCE IV ; Start 06/28 at 17:54; Stop 06/28/17 at 17:55; Status DC Ondansetron HCl (Zofran) 4 mg PRN Q4HRS PRN IV NAUSEA/VOMITING; Start at 19:15; Stop 06/29/17 at 19:14; Status DC Sodium Chloride 1,000 ml @ 100 mls/hr Q10H IV Last administered on 06/29/17t 12:13; Start 06/28/17 at 19:30; Stop 06/29/17 at 19:29; Status DC Piperacillin Sod/ Tazobactam Sod (Zosyn Per Pharmacy) 1 each PRN DAILY PRN MC SEE COMMENTS; Start 06/28/17 at 21:15 Piperacillin Sod/ Tazobactam Sod 4.5 gm/Sodium Chloride 50 ml @ 100 mls/hr Q6HRS IV Last administered on 07/01/17 06:05; Start 06/29/17 at 00:00 Lactobacillus Rhamnosus (Culturelle) 1 cap BID PO Last administered on 08:14; Start 06/29/17 at 09:00 Sodium Chloride 1,000 ml @ 2,880 mls/hr Q21M IV Last administered on 00:53; Start 06/28/17 at 21:18; Stop 06/28/17 at 22:18; Status DC Sodium Chloride 500 ml @ 1,000 mls/hr PRN Q30MIN PRN IV SEE COMMENTS; Start 06/28/17 at 21:30 Norepinephrine Bitartrate 16 mg/ Sodium Chloride 266 ml @ 0.99 mls/hr CONT PRN IV SEE I/O RECORD; Start 06/28/17 at 22:00; Stop 06/30/17 at 15:50; Status DC Aspirin (Clara Aspirin) 325 mg BID PO Last administered on 07/01/17 08:14; Start 06/29/17 at 09:00 Enoxaparin Sodium (Lovenox) 40 mg Q24H SQ Last administered on 06/30/17 20:36 ; Start 06/28/17 at 22:00 Nystatin (Nystop) 1 benitez BID TP Last administered on 07/01/17 08:21; Start at 09:00 Sertraline HCl (Zoloft) 100 mg DAILY PO Last administered on 07/01/17 08:14; Start 06/29/17 at 09:00 Simvastatin (Zocor) 40 mg QHS PO Last administered on 06/30/17 20:35; Start 06/28/17 at 21:00 Tramadol HCl (Ultram) 50 mg PRN Q6HRS PRN PO PAIN Last administered on 23:57; Start 06/28/17 at 21:30 Vitamin D (Vitamin D3) 5,000 unit DAILY PO Last administered on 07/01/17 08: 15; Start 06/29/17 at 09:00 Guaifenesin (Mucinex Er) 1,200 mg DAILY PO Last administered on 06/29/17 08: 23; Start 06/29/17 at 09:00; Stop 06/29/17 at 09:00; Status DC Albuterol/ Ipratropium (Duoneb) 3 ml STK-MED ONCE .ROUTE Last administered on 06/29/17 00:18; Start 06/29/17 at 00:13; Stop 06/29/17 at 00:14; Status DC Albuterol/ Ipratropium (Duoneb) 3 ml RTQID NEB Last administered on 07/01/17 05:51; Start 06/29/17 at 08:00 Albuterol/ Ipratropium (Duoneb) 3 ml STK-MED ONCE .ROUTE ; Start 06/29/17 at 05 :20; Stop 06/29/17 at 05:21; Status DC Guaifenesin (MUCINEX ER with DM) 1 tab BID PO Last administered on 07/01/17 08:14; Start 06/29/17 at 09:00 Iohexol (Omnipaque 300 Mg/ml) 75 ml 1X ONCE IV Last administered on 10:00; Start 06/29/17 at 10:00; Stop 06/29/17 at 10:02; Status DC Info (Do NOT chart on this entry -- for MONITORING) 1 each PRN DAILY PRN MC SEE COMMENTS; Start 06/29/17 at 10:15; Stop 07/01/17 at 10:14 Hydrochlorothiazide (Hydrodiuril) 25 mg DAILY PO Last administered on 11:39; Start 06/29/17 at 11:30; Stop 06/29/17 at 13:14; Status DC Lisinopril (Prinivil) 20 mg DAILY PO Last administered on 07/01/17 08:15; Start 06/29/17 at 11:30 Multivitamins/ Calcium (Thera-M Plus) 1 tab DAILY PO Last administered on 06/29 11:39; Start 06/29/17 at 11:30; Stop 06/29/17 at 13:20; Status DC Non-Formulary Medication 1 tab BID PO ; Start 06/29/17 at 21:00; Stop at 21:00; Status DC Multivitamins/ Minerals (I-Won) 1 tab DAILY PO Last administered on 08:14; Start 06/30/17 at 09:00 Meloxicam (Mobic) 7.5 mg DAILY PO Last administered on 06/29/17 11:39; Start 06/29/17 at 11:30; Stop 06/29/17 at 13:14; Status DC Acetaminophen (Tylenol) 650 mg Q8HRS PO Last administered on 07/01/17 06:05; Start 06/29/17 at 14:00 Sodium Chloride 1,000 ml @ 100 mls/hr Q10H IV Last administered on 07/01/17 03:43; Start 06/30/17 at 01:00; Stop 07/01/17 at 06:27; Status DC Furosemide (Lasix) 40 mg 1X ONCE IVP Last administered on 06/30/17 13:36; Start 06/30/17 at 13:15; Stop 06/30/17 at 13:16; Status DC Active Scripts Active Reported Multivitamins (Multivitamin) 1 Each Tablet 1 Tab PO DAILY Multivitamins (Multivitamin) 1 Each Tablet 1 Each PO Multivitamins (Multivitamin) 1 Each Tablet 1 Tab PO DAILY Nystatin 15 Gm Powder 15 Gm TP BID Enoxaparin Sodium 30 Mg/0.3 Ml Disp.syrin 30 Mg SQ BID Mucinex (Guaifenesin) 1,200 Mg Tbmp.12hr 1 Tab PO DAILY Tramadol Hcl (Tramadol HCl) 50 Mg Tablet 50 Mg PO PRN Q6HRS PRN Simvastatin 40 Mg Tablet 40 Mg PO DAILY Nabumetone 500 Mg Tablet 1 Tab PO BID Lisinopril 20 Mg Tablet 20 Mg PO DAILY Vitamin D3 (Cholecalciferol (Vitamin D3)) 5,000 Unit Tablet 1 Tab PO DAILY Aspirin 325 Mg Tablet 325 Mg PO BID Preservision Areds Softgel (Vit A/Vit C/Vit E/Zinc/Copper) 1 Each Capsule 1 Each PO BID Zoloft (Sertraline Hcl) 100 Mg Tablet 1 Tab PO DAILY Hydrochlorothiazide Tablet (Hydrochlorothiazide) 25 Mg Tablet 1 Tab PO DAILY Patient Instructions Patient Instuctions [facility] Jul 01, 2017 09:51
== END 2017-07-01 10:41 | disposition home or self-care (01) | DRG 177 ==
LOC: ER 15:00 → 1 SOUTH 17:35
PROVIDERS: ADMIT Family Medicine; ATTEND Family Medicine
DX: J69.0 Pneumonitis due to inhalation of food and vomit (principal); J96.00 Acute respiratory failure, unspecified whether with hypoxia or hypercapnia; N17.9 Acute kidney failure, unspecified; L89.152 Pressure ulcer of sacral region, stage 2; E87.2 Acidosis; E86.9 Volume depletion, unspecified; E87.70 Fluid overload, unspecified; E11.9 Type 2 diabetes mellitus without complications; L89.620 Pressure ulcer of left heel, unstageable; L89.610 Pressure ulcer of right heel, unstageable; E78.5 Hyperlipidemia, unspecified; H35.30 Unspecified macular degeneration; H54.7 Unspecified visual loss; H91.90 Unspecified hearing loss, unspecified ear; F32.9 Major depressive disorder, single episode, unspecified; M19.90 Unspecified osteoarthritis, unspecified site; I10 Essential (primary) hypertension; M81.0 Age-related osteoporosis without current pathological fracture; Z96.649 Presence of unspecified artificial hip joint; Z87.81 Personal history of (healed) traumatic fracture; Z79.1 Long term (current) use of non-steroidal anti-inflammatories (NSAID); Z79.4 Long term (current) use of insulin; Z79.82 Long term (current) use of aspirin; Z79.899 Other long term (current) drug therapy; Z87.891 Personal history of nicotine dependence; Z91.81 History of falling
CPT/HCPCS: 36415; 51702; 71010; 71275; 80048; 80053; 81001; 83605; 83735; 85025; 87040; 87641; 87804; 94640; 96361; 96365; 96367; J0696; J1650; J1940; J2543; J7620; Q9967; 92610; 97110; 97530; 99285-25; J7030

== ENCOUNTER 2017-07-26 21:35 | Inpatient (IN) | payer MEDICARE, OTHER ==
[~2017-07-26] VITALS: Ht 162.6 cm; Wt 97.5 kg
[~2017-07-26 21:35] MED LIST: ASPI325T8 PO; CHOL500016 PO; ENOX30DI3 SQ; ENOX40DI SQ; GUAI12003 PO; HYDR25TA9 PO; LISI-334 PO; MULT1TAB52 PO; NABU500T PO; NYST1000 PO; NYST15PO9 TP; SERT100T PO; SIMV40TA3 PO; TRAM50TA PO; VIT1CAPS12 PO
--- NOTE | 2017-07-26 21:56 | ED.ADGEN ---
Past History Past Medical History: No Pertinent History, High Cholesterol, Hip Fracture, Hypertension, Pneumonia, Other Past Surgical History: Hip Replacement Alcohol Use: None Drug Use: None Adult General Chief Complaint Chief Complaint " I ve had some diarrhea..some crappie pain.. and they said by BP is too low... I just left here the other day... I had pneumonia..." HPI HPI Patient is a 86 year old male who presents with above hx and complaints of hypotension and recent admit for pneumonia. Pt. transfer from [place] for hypotension . Pt. hx. of admission for pneumonia. Patient on arrival to the [facility] that have borderline blood pressure. No recent travel but is in a senior living of other sick individuals. Patient follows with Dr. Bruce. Review of Systems Review of Systems Pt. has no complaints of anxiety gets dizzy when he stands up Constitutional: Denies fever or chills [] Eyes: Denies change in visual acuity, redness, or eye pain [] HENT: Denies nasal congestion or sore throat [] Respiratory: Denies cough or shortness of breath [] Cardiovascular: No additional information not addressed in HPI [] GI: Denies abdominal pain, nausea, vomiting, bloody stools or diarrhea [] : Denies dysuria or hematuria [] Musculoskeletal: Denies back pain or joint pain [] Integument: Denies rash or skin lesions [] Neurologic: Denies headache, focal weakness or sensory changes [] Endocrine: Denies polyuria or polydipsia [] All other systems were reviewed and found to be within normal limits, except as documented in this note. Family History Family History Not currently available Current Medications Current Medications Current Medications Medications (Trade) Dose Ordered Sig/Eleanor Start Time Stop Time Status Last Admin Dose Admin Famotidine (Pepcid Vial) 20 mg 1X ONCE 07/26/17 22:30 07/26/17 22:31 DC 07/26/17 23:07 20 MG Ondansetron HCl (Zofran) 8 mg 1X ONCE 07/26/17 22:30 07/26/17 22:31 DC 07/26/17 23:08 8 MG Sodium Chloride 500 ml @ As Directed STK-MED ONCE 07/26/17 22:55 07/26/17 22:56 DC Vancomycin HCl 1 gm STK-MED ONCE 07/26/17 22:55 07/26/17 22:56 DC Vancomycin HCl (Vanco Per Pharmacy) 1 each PRN DAILY PRN 07/26/17 22:30 07/27/17 04:59 1 EACH Vancomycin HCl 1 gm/Sodium Chloride 250 ml @ 250 mls/hr 1X ONCE 07/26/17 22:00 07/26/17 22:59 UNV Vancomycin HCl 2 gm/Sodium Chloride 500 ml @ 250 mls/hr 1X ONCE 07/26/17 23:00 07/27/17 00:59 DC 07/26/17 23:07 250 MLS/HR See nursing for home meds Allergies Allergies Allergies Coded Allergies Type Severity Reaction Last Updated Verified No Known Drug Allergies 06/28/17 No Physical Exam Physical Exam Constitutional: Chronically ill in appearance, in acute distress, HENT: Normocephalic, atraumatic, bilateral external ears normal, oropharynx moist, no oral exudates, nose rhinorrhea Eyes: conjunctiva pale, no discharge. [] Neck: Normal range of motion, no tenderness, supple, no stridor. [] Cardiovascular: Tachycardia Heart rate irregular rhythm, PMI to the left Lungs & Thorax: Bilateral rhonchi, and wheezes auscultation [] Abdomen: Bowel sounds hyperactive, soft, no tenderness, no masses, no pulsatile masses. [] Skin: Warm, dry, no erythema, no rash. Pale Back: No tenderness, no CVA tenderness. [] Extremities: Rt shoulder tenderness, no cyanosis, no clubbing, ROM intact, no edema. Arthritic changes. Neurologic: Alert and oriented X 3, no gross focal motor function, sensory function loss over base line Psychologic: Affect depressed, judgement unable to assess , mood depression. Current Patient Data Vital Signs Vital Signs Date Time Temp Pulse Resp B/P (MAP) Pulse Ox O2 Delivery O2 Flow Rate FiO2 07/26/17 23:00 82 20 107/51 (69) 94 Nasal Cannula 4.0 07/26/17 21:35 97.8 Lab Results Laboratory Tests Test 07/26/17 21:55 07/26/17 22:30 Urine Collection Type Unknown Urine Color Yellow Urine Clarity Clear Urine pH 5.0 Urine Specific Leivasy 1.015 Urine Protein Neg (NEG-TRACE) Urine Glucose (UA) Neg mg/dL (NEG) Urine Ketones (Stick) Neg mg/dL (NEG) Urine Blood Trace (NEG) Urine Nitrite Neg (NEG) Urine Bilirubin Neg (NEG) Urine Urobilinogen Dipstick 0.2 mg/dL (0.2 mg/dL) Urine Leukocyte Esterase Neg (NEG) Urine RBC 1-2 /HPF (0-2) Urine WBC Occ /HPF (0-4) Urine Squamous Epithelial Cells None /LPF Urine Bacteria 0 /HPF (0-FEW) Urine Hyaline Casts Mod /HPF Urine Mucus Mod /LPF Urine Opiates Screen Neg (NEG) Urine Methadone Screen Neg (NEG) Urine Barbiturates Neg (NEG) Urine Phencyclidine Screen Neg (NEG) Urine Amphetamine/Methamphetamine Neg (NEG) Urine Benzodiazepines Screen Neg (NEG) Urine Cocaine Screen Neg (NEG) Urine Cannabinoids Screen Neg (NEG) Urine Ethyl Alcohol Neg (NEG) White Blood Count 16.2 x10^3/uL (4.0-11.0) H Red Blood Count 3.80 x10^6/uL (4.30-5.70) L Hemoglobin 11.3 g/dL (13.0-17.5) L Hematocrit 34.0 % (39.0-53.0) L Mean Corpuscular Volume 90 fL (79-100) Mean Corpuscular Hemoglobin 30 pg (25-35) Mean Corpuscular Hemoglobin Concent 33 g/dL (31-37) Red Cell Distribution Width 15.1 % (11.5-14.5) H Platelet Count 269 x10^3/uL (140-400) Neutrophils (%) (Auto) 80 % (31-73) H Lymphocytes (%) (Auto) 10 % (24-48) L Monocytes (%) (Auto) 7 % (0-9) Eosinophils (%) (Auto) 1 % (0-3) Basophils (%) (Auto) 1 % (0-3) Neutrophils # (Auto) 13.1 x10^3uL (1.8-7.7) H Lymphocytes # (Auto) 1.7 x10^3/uL (1.0-4.8) Monocytes # (Auto) 1.2 x10^3/uL (0.0-1.1) H Eosinophils # (Auto) 0.2 x10^3/uL (0.0-0.7) Basophils # (Auto) 0.1 x10^3/uL (0.0-0.2) Segmented Neutrophils % 76 % (35-66) H Band Neutrophils % 8 % (0-9) Lymphocytes % 12 % (24-48) L Monocytes % 1 % (0-10) Eosinophils % 3 % (0-5) Platelet Estimate Adequate (ADEQUATE) Prothrombin Time 11.5 SEC (9.4-11.4) H Prothrombin Time INR 1.1 (0.9-1.1) PTT 28 SEC (23-33) Sodium Level 137 mmol/L (136-145) Potassium Level 3.6 mmol/L (3.5-5.1) Chloride Level 101 mmol/L (98-107) Carbon Dioxide Level 24 mmol/L (21-32) Anion Gap 12 (6-14) Blood Urea Nitrogen 55 mg/dL (8-26) H Creatinine 2.0 mg/dL (0.7-1.3) H Estimated GFR (Cockcroft-Gault) 31.8 Glucose Level 112 mg/dL (70-99) H Lactic Acid Level 0.8 mmol/L (0.4-2.0) Calcium Level 9.1 mg/dL (8.5-10.1) Total Bilirubin 0.4 mg/dL (0.2-1.0) Direct Bilirubin 0.1 mg/dL (0.0-0.2) Aspartate Amino Transferase (AST) 18 U/L (15-37) Alanine Aminotransferase (ALT) 29 U/L (16-63) Alkaline Phosphatase 84 U/L (46-116) Creatine Kinase 20 U/L (39-308) L Creatine Kinase MB (Mass) 0.7 ng/mL (0.0-3.6) Creatine Kinase MB Relative Index 3.5 % (0-4) Troponin I Quantitative < 0.017 ng/mL (0-0.055) Total Protein 6.9 g/dL (6.4-8.2) Albumin 2.5 g/dL (3.4-5.0) L Lipase 85 U/L (73-393) EKG EKG I interpretation of EKG shows a sinus rhythm along when necessary removal at 84 bpm. Has left axis deviation and a bifascicular block[] Radiology/Procedures Radiology/Procedures Interpretation of chest x-ray shows cardiomegaly and chronic changes consistent with COPD, has increased cephalization and severe right shoulder changes- appears old. No pneumothorax appreciated after central line placement Course & Med Decision Making Course & Med Decision Making Pertinent Labs and Imaging studies reviewed. (See chart for details) Procedure note-Central line placement-need for adequate IV access, pressors, frequent blood draws,- area prepped and draped sterilely central line kit. Line placement seldinger technique left subclavian. Sutured with bio-patch steri op site. [] Final Impression Final Impression 1. Hypotension 2. Hx. Pneumonia[] 3. Leukocytosis 4. Anemia 5. Acute on Chronic Renal Failure 6. Malnutrition- Albumin 2.5 7. SIRs 8. Diarrhea 9. Dehydration Problems: Dragon Disclaimer Dragon Disclaimer This electronic medical record was generated, in whole or in part, using a voice recognition dictation system. DEEPALI BERNARD MD Jul 26, 2017 21:56
[2017-07-26] MEDS ORDERED: VANCOMYCIN 1 GM in IV NORMAL SALINE 250ML 250 ML IV ONE (22:00)
[2017-07-26] MEDS ORDERED: VANCOMYCIN PER PHARMACY MC PRN (22:30)
[2017-07-26] MEDS ORDERED: IV NORMAL SALINE 1,000ML 1,000 ML IV SCH (22:30)
[2017-07-26] MEDS ORDERED: ONDANSETRON PF 4 MG/2 ML VIAL. IV ONE (22:30)
[2017-07-26] MEDS ORDERED: FAMOTIDINE 20 MG/2 ML VIAL IVP ONE (22:30)
[2017-07-26 22:36] LABS: BILIRUBIN,URINE NEG (NEG); CLARITY,URINE CLEAR; COLOR,URINE YELLOW; GLUCOSE,URINE NEG (NEG); NITRITE,URINE NEG (NEG); UROBILINOGEN,URINE 0.2 mg/dL (0.2 mg/dL)
[2017-07-26 22:43] LABS: BACTERIA,URINE 0 /HPF (0-FEW); HYALINE CASTS, URINE MOD /HPF; WBC,URINE OCC /HPF (0-4)
[2017-07-26 22:44] LABS: BARBITURATES NEG (NEG); BENZODIAZEPINES NEG (NEG); CANNABINOIDS NEG (NEG); COCAINE NEG (NEG); METHADONE NEG (NEG); OPIATES NEG (NEG); PHENCYCLIDINE NEG (NEG)
[2017-07-26 22:47] LABS: AMPHETAMINE/METHAMPHETAMINE NEG (NEG)
[2017-07-26] MEDS ORDERED: VANCOMYCIN 1 GM VIAL. ONE (22:55)
[2017-07-26] MEDS ORDERED: IV NORMAL SALINE 500ML 500 ML ONE (22:55)
[2017-07-26] MEDS ORDERED: VANCOMYCIN 2 GM in IV NORMAL SALINE 500ML 500 ML IV ONE (23:00)
[2017-07-26 23:01] LABS: BASO # 0.1 x10^3/uL (0.0-0.2); BASO % 1 % (0-3); EOS # 0.2 x10^3/uL (0.0-0.7); EOS % 1 % (0-3); HEMOGLOBIN 11.3 g/dL (13.0-17.5); LYMPH # 1.7 x10^3/uL (1.0-4.8); LYMPH % 10 % (24-48); MEAN CORPUSCULAR HEMOGLOBIN 30 pg (25-35); MEAN CORPUSCULAR HGB CONC 33 g/dL (31-37); MEAN CORPUSCULAR VOLUME 90 fL (79-100); MONO # 1.2 x10^3/uL (0.0-1.1); MONO % 7 % (0-9); NEUT # 13.1 x10^3uL (1.8-7.7); NEUT % 80 % (31-73); PLATELET COUNT 269 x10^3/uL (140-400); RED CELL DISTRIBUTION WIDTH 15.1 % (11.5-14.5); WHITE BLOOD COUNT 16.2 x10^3/uL (4.0-11.0)
[2017-07-26 23:21] LABS: ALBUMIN 2.5 g/dL (3.4-5.0); CALCIUM 9.1 mg/dL (8.5-10.1); DIRECT BILIRUBIN 0.1 mg/dL (0.0-0.2); GFR 31.8; POTASSIUM 3.6 mmol/L (3.5-5.1); TOTAL BILIRUBIN 0.4 mg/dL (0.2-1.0); TOTAL PROTEIN 6.9 g/dL (6.4-8.2)
[2017-07-26 23:29] LABS: % BANDS 8 % (0-9); % EOS 3 % (0-5); % LYMPHS 12 % (24-48); % MONOS 1 % (0-10); % SEGS 76 % (35-66)
[2017-07-26 23:30] LABS: PLT ESTIMATE ADEQUATE (ADEQUATE)
[2017-07-27] VITALS (24 sets, daily range): BP systolic 74–127; BP diastolic 41–59
--- NOTE | 2017-07-27 00:10 | EKG ---
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
[2017-07-27 01:58] LABS: INFLUENZA A PATIENT NEGATIVE (NEGATIVE); INFLUENZA B PATIENT NEGATIVE (NEGATIVE)
[2017-07-27] MEDS ORDERED: IV NORMAL SALINE 50ML 50 ML ONE (02:11)
[2017-07-27] MEDS ORDERED: cefTRIAXone SODIUM 1 GM VIAL IV ONE (02:11)
--- NOTE | 2017-07-27 02:36 | RAD ---
CT scan of the chest, abdomen and pelvis without contrast 07/27/2017 CLINICAL HISTORY: Shortness of breath, abdominal pain and distention with frequent falls. TECHNIQUE: Unenhanced, contiguous, 3 mm axial sections were obtained through the chest, abdomen and pelvis. One or more of the following individualized dose reduction techniques were utilized for this study: 1. Automated exposure control. 2. Adjustment of the mA and/or kV according to patient size. 3. Use of iterative reconstruction technique. FINDINGS: Moderate atherosclerotic calcification of the thoracic aorta and its branches is seen. Extensive coronary artery calcifications are noted. The heart is mildly enlarged. The thoracic aorta is tortuous but tapers normally. Dependent subsegmental atelectasis is seen involving both lungs. No area of consolidation is seen. No pneumothorax or pleural effusion is noted. A left subclavian central venous catheter is seen with its tip extending to the superior aspect of the superior vena cava. The liver, spleen, pancreas, adrenal glands and kidneys are within normal limits. Moderate atherosclerotic calcification abdominal aorta and its branches is seen. The abdominal aorta tapers normally. No free fluid or free air is seen within the abdomen. There is no evidence of bowel obstruction. Calcified gallstones are seen within the gallbladder. There is no evidence of bowel obstruction. Images through the pelvis demonstrate the urinary bladder distended with urine. The patient is post right JOSE. A dynamic hip screw and intramedullary bonita are seen within the proximal left femur transfixing a fracture of the proximal left femur. No free fluid is noted. No pelvic hematoma is seen. Scattered diverticula are seen involving the sigmoid colon. No inflammatory changes are seen in the adjacent fat. Old ununited fracture of the right femoral neck is noted. Old healed rib fractures are seen bilaterally. A 2.5 cm hemangioma seen involving the T4 vertebral body. Old compression fractures are seen involving the T10 and L3 vertebral bodies. Acute appearing compression fractures are seen involving the T12 and L1 vertebral bodies. These have lost 70-80 percent of their normal height. No significant retropulsion of bone fragments into the central spinal canal is seen. IMPRESSION: Acute appearing compression fractures are seen involving the T12 and L1 vertebral bodies. No significant retropulsion of bone fragments into the central spinal canal is seen. Electronically signed by: Levon Carrasquillo MD (07/27/2017 2:33 AM) [place] [id number]
[2017-07-27] MEDS: IV NORMAL SALINE 1,000ML 1,000 ML IV SCH ×5 (04:26→14:38)
[2017-07-27] MEDS ORDERED: GUAI600T47 PO (04:50)
[2017-07-27] MEDS ORDERED: IPRA3AMP NEB (04:50)
[2017-07-27] MEDS ORDERED: ACET325T9 PO (04:51)
[2017-07-27] MEDS ORDERED: ENOX40DI SQ (04:54)
[2017-07-27] MEDS ORDERED: ASPI-630 PO (04:55)
--- NOTE | 2017-07-27 07:11 | RAD ---
Indication: Shoulder pain, falls. Technique: 2 views of each shoulder are submitted for review. Findings: There is moderate osteoarthritis in the left glenohumeral joint. There is no left shoulder fracture or dislocation. There is deformity of the proximal right humerus. This may be sequela of remote fracture and pseudoarthrosis at the fracture site. There are advanced degenerative changes at the glenohumeral joint as well. There is no dislocation. Impression: 1. There is a fracture of the right shoulder although this may be chronic. There is apparent pseudarthrosis at the nonunited fracture site. 2. There is osteoarthritis of both glenohumeral joints.
--- NOTE | 2017-07-27 07:13 | RAD ---
Indication: Central line placement. Technique: AP portable chest radiograph was obtained. Comparison is from one day earlier. Findings: Left subclavian central line has been placed with the tip in the SVC proximally. There is no pneumothorax or pleural effusion apparent. There is left basilar atelectasis and/ or infiltrate. There is a band of atelectasis on the right as well. The heart is not enlarged. There is no definite heart failure. There is atheromatous disease in the thoracic aorta. Shoulder findings were described on separate report. Impression: 1. Left subclavian central line placement without complication. 2. Left basilar atelectasis and/or infiltrate.
[2017-07-27] MEDS ORDERED: traMADol 50 MG TABLET PO PRN (07:30)
[2017-07-27] MEDS ORDERED: ACETAMINOPHEN 325 MG TABLET PO PRN (07:30)
--- NOTE | 2017-07-27 07:31 | RAD ---
Indication: Abdominal pain and distention. Technique: Abdominal series with AP chest radiograph contains 4 images. Comparison chest radiograph is from July 01, 2017. Findings: Bilateral infiltrates and/or atelectasis in the lower lung warren have increased from prior study. Heart is not enlarged. There is atheromatous disease in the thoracic aorta. Shoulders were imaged separately and will be described in a separate report. There is dextrocurvature of the lower thoracic and lumbar spine. Impression: Bilateral infiltrates and/or atelectasis have increased from prior.
[2017-07-27 08:22] LABS: BASO % 0 % (0-3); EOS # 0.3 x10^3/uL (0.0-0.7); EOS % 3 % (0-3); HEMATOCRIT 31.9 % (39.0-53.0); HEMOGLOBIN 10.5 g/dL (13.0-17.5); LYMPH # 1.7 x10^3/uL (1.0-4.8); LYMPH % 13 % (24-48); MEAN CORPUSCULAR HEMOGLOBIN 30 pg (25-35); MEAN CORPUSCULAR HGB CONC 33 g/dL (31-37); MEAN CORPUSCULAR VOLUME 91 fL (79-100); MONO # 1.1 x10^3/uL (0.0-1.1); MONO % 9 % (0-9); NEUT # 9.9 x10^3uL (1.8-7.7); NEUT % 76 % (31-73); PLATELET COUNT 225 x10^3/uL (140-400)
[2017-07-27] MEDS: ENOXAPARIN 40 MG/0.4 ML DISP.SYRIN. SQ SCH (08:30)
[2017-07-27] MEDS: SERTRALINE 100 MG TABLET. PO SCH (08:31)
[2017-07-27] MEDS: ASPIRIN 81 MG TAB.CHEW PO SCH (08:31)
[2017-07-27] MEDS: MULTIVITAMIN with MINERAL TABLET. PO SCH (08:32)
[2017-07-27] MEDS: CHOLECALCIFEROL (VITAMIN D3) 1,000 UNIT TABLET PO SCH (08:32)
[2017-07-27] MEDS: SIMVASTATIN 40 MG TABLET. PO SCH (08:32)
[2017-07-27 08:45] LABS: ALBUMIN/GLOBULIN RATIO 0.5 (1.0-1.7); CALCIUM 8.1 mg/dL (8.5-10.1); CREATININE 1.7 mg/dL (0.7-1.3); GFR 38.4; MAGNESIUM 1.6 mg/dL (1.8-2.4); POTASSIUM 3.4 mmol/L (3.5-5.1); TOTAL BILIRUBIN 0.1 mg/dL (0.2-1.0); TOTAL PROTEIN 5.9 g/dL (6.4-8.2)
[2017-07-27] MEDS: NYSTATIN TOPICAL POWDER 15GM BOTTLE. TP SCH ×2 (08:52→21:13)
[2017-07-27] MEDS: IPRATRPIUM/ALBUTEROL 0.5/2.5MG 3 ML NEBU. NEB SCH ×2 (09:33→21:36)
[2017-07-27] MEDS ORDERED: VANCOMYCIN PER PHARMACY MC PRN (10:00)
[2017-07-27] MEDS ORDERED: MAGNESIUM SULFATE 2GM 50 ML IV ONE (10:00)
[2017-07-27] MEDS: NOREPINEPHRINE BITARTRATE 8 MG in IV NORMAL SALINE 250ML 250 ML IV PRN (10:15)
[2017-07-27] MEDS: PIPERACILLIN/TAZOBACTAM 3.375 GM in IV NORMAL SALINE 50ML 50 ML IV SCH ×2 (11:45→17:25)
[2017-07-27] MEDS ORDERED: POTASSIUM CHLORIDE 20 MEQ TABLET.ER. PO ONE (12:15)
[2017-07-27] MEDS: LACTOBACILLUS RHAMNOSUS GG 1 CAPSULE. PO SCH (21:10)
[2017-07-27] MEDS: VANCOMYCIN 250 MG/5 ML ORAL SOLUTION. PO SCH (21:11)
[2017-07-27] MEDS ORDERED: VANCOMYCIN 1.5 GM in IV NORMAL SALINE 500ML 500 ML IV SCH (23:00)
[2017-07-28] VITALS (24 sets, daily range): BP systolic 90–146; BP diastolic 47–82
[2017-07-28] MEDS: IV NORMAL SALINE 1,000ML 1,000 ML IV SCH ×3 (00:36→10:49)
[2017-07-28] MEDS: VANCOMYCIN 250 MG/5 ML ORAL SOLUTION. PO SCH ×2 (00:36→05:12)
[2017-07-28] MEDS: NOREPINEPHRINE BITARTRATE 8 MG in IV NORMAL SALINE 250ML 250 ML IV PRN (02:17)
--- NOTE | 2017-07-28 02:32 | HP ---
ADMIT DATE: 07/26/2017 HISTORY OF PRESENT ILLNESS: This is an 86-year-old male who was brought to the Emergency Room from [place] where he had been having hypotension. He apparently had some diarrhea too. He had been discharged about a little bit less than a month ago after having aspiration pneumonia. 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 Hospitalization at [facility] in June for pneumonia. ALLERGIES: None. MEDICATIONS: Reviewed. SOCIAL HISTORY: At [place], retired [employer], nonsmoker. Daughter involved in his care. He had been in ongoing rehabilitation. REVIEW OF SYSTEMS: The patient reports some back pain and apparently some diarrhea and feeling weak. OBJECTIVE: VITAL SIGNS: The patient is afebrile, temperature 97.6. Lowest blood pressure, we had a 69/40-something, currently at the time of exam was around 77/44; MAP of 54; pulse ox 95% on 5 liters. GENERAL: The patient is somewhat dizzy, but he is awake, placed in Trendelenburg. HEENT: Color is pale. Tongue dry. NECK: Supple. LUNGS: Clear. CARDIOVASCULAR: Regular rhythm and rate. ABDOMEN: Mildly tachycardic, does have some pinpoint tenderness around the T12, L1, L2 area. No bruising noted. ABDOMEN: Soft, nontender. Bowel sounds were positive. EXTREMITIES: Without edema. LABORATORY DATA: White blood cell count 16.2, 76% neutrophils, 8 bands, which is normal. Sodium 143, potassium 3.4, magnesium 1.6. Procalcitonin 0.85, elevated. Albumin 2.0. CT of the abdomen and pelvis, he has compression fractures of T12 and L1 and other compression fractures. He has extensive coronary artery calcifications, mildly enlarged heart, atelectasis of both lungs without consolidation. He also has a fracture of the right shoulder, but probably chronic. Urinalysis is negative. Flu was negative. ASSESSMENT: 1. Septic shock. 2. Hypokalemia. 3. Hypomagnesemia. 4. Acute kidney injury. 5. Dehydration. 6. Report of diarrhea. 7. Chronic right shoulder fracture. 8. Acute compression fractures of T12 and L1. 9. Severe protein calorie malnutrition. PLAN: IV fluids, antibiotics, Levophed for blood pressure, broad spectrum antibiotics and have discussed hospice with daughter and he is on DVT prophylaxis. AUGUSTO LAU DO DR: DARON/cleo JOB#: [id number] / [id number]
[2017-07-28 06:28] LABS: BASO # 0.1 x10^3/uL (0.0-0.2); BASO % 1 % (0-3); EOS # 0.3 x10^3/uL (0.0-0.7); EOS % 3 % (0-3); HEMATOCRIT 31.9 % (39.0-53.0); HEMOGLOBIN 10.7 g/dL (13.0-17.5); LYMPH # 1.4 x10^3/uL (1.0-4.8); LYMPH % 12 % (24-48); MEAN CORPUSCULAR HEMOGLOBIN 30 pg (25-35); MEAN CORPUSCULAR HGB CONC 33 g/dL (31-37); MEAN CORPUSCULAR VOLUME 90 fL (79-100); MONO # 1.3 x10^3/uL (0.0-1.1); MONO % 11 % (0-9); NEUT # 8.4 x10^3uL (1.8-7.7); NEUT % 73 % (31-73); PLATELET COUNT 238 x10^3/uL (140-400); RED BLOOD COUNT 3.54 x10^6/uL (4.30-5.70); RED CELL DISTRIBUTION WIDTH 14.7 % (11.5-14.5); WHITE BLOOD COUNT 11.5 x10^3/uL (4.0-11.0)
[2017-07-28 06:38] LABS: ALBUMIN/GLOBULIN RATIO 0.5 (1.0-1.7); CALCIUM 7.9 mg/dL (8.5-10.1); CREATININE 1.4 mg/dL (0.7-1.3); GFR 48.1; MAGNESIUM 1.9 mg/dL (1.8-2.4); POTASSIUM 3.7 mmol/L (3.5-5.1); TOTAL BILIRUBIN 0.2 mg/dL (0.2-1.0); TOTAL PROTEIN 5.9 g/dL (6.4-8.2)
--- NOTE | 2017-07-28 08:40 | RAD ---
Indication: Cough, short of air. Technique: Upright portable chest radiograph was obtained. Comparison is from one day earlier. Findings: Left basilar opacity is not appreciably changed. Linear atelectasis or scarring on the right again is noted. No new airspace disease is apparent. The heart is not enlarged. There is atheromatous disease in the thoracic aorta. Left subclavian central line is in place. Chronic appearing fracture deformity of the proximal right humerus is noted. Leads overlie the patient. Impression: Left basilar atelectasis and/ or infiltrate is similar to prior. Band of atelectasis on the right again is noted as well.
[2017-07-28] MEDS: IPRATRPIUM/ALBUTEROL 0.5/2.5MG 3 ML NEBU. NEB SCH ×2 (09:38→20:41)
[2017-07-28] MEDS: LACTOBACILLUS RHAMNOSUS GG 1 CAPSULE. PO SCH ×2 (10:29→20:46)
[2017-07-28] MEDS: CHOLECALCIFEROL (VITAMIN D3) 1,000 UNIT TABLET PO SCH (10:29)
[2017-07-28] MEDS: ASPIRIN 81 MG TAB.CHEW PO SCH (10:29)
[2017-07-28] MEDS: SERTRALINE 100 MG TABLET. PO SCH (10:29)
[2017-07-28] MEDS: MULTIVITAMIN with MINERAL TABLET. PO SCH (10:29)
[2017-07-28] MEDS: SIMVASTATIN 40 MG TABLET. PO SCH (10:29)
[2017-07-28] MEDS: ENOXAPARIN 40 MG/0.4 ML DISP.SYRIN. SQ SCH (10:29)
[2017-07-28] MEDS: NYSTATIN TOPICAL POWDER 15GM BOTTLE. TP SCH ×2 (10:55→20:47)
[2017-07-28] MEDS: VANCOMYCIN 125 MG/2.5 ML ORAL SOLUTION. PO SCH ×2 (13:37→18:19)
[2017-07-28] MEDS ORDERED: PIP/TAZO PER PHARMACY MC PRN (17:00)
[2017-07-28] MEDS ORDERED: AZITHROMYCIN 500 MG in IV NORMAL SALINE 250ML 250 ML IV SCH (17:00)
[2017-07-28] MEDS: PIPERACILLIN/TAZOBACTAM 3.375 GM in IV NORMAL SALINE 50ML 50 ML IV SCH (18:19)
[2017-07-29] VITALS (8 sets, daily range): BP systolic 91–140; BP diastolic 0–63
[2017-07-29] MEDS: PIPERACILLIN/TAZOBACTAM 3.375 GM in IV NORMAL SALINE 50ML 50 ML IV SCH ×5 (00:22→23:37)
[2017-07-29] MEDS: VANCOMYCIN 125 MG/2.5 ML ORAL SOLUTION. PO SCH ×5 (00:22→23:37)
[2017-07-29] MEDS: IV NORMAL SALINE 1,000ML 1,000 ML IV SCH ×3 (01:58→17:31)
--- NOTE | 2017-07-29 02:17 | PN ---
DATE: CURRENT PROBLEMS: 1. Septic shock with C. diff. 2. Hypokalemia. 3. Hypomagnesemia. 4. Acute kidney injury. 5. Severe dehydration. 6. Hypotension, on Levophed. 7. Chronic right shoulder fracture. 8. Acute compression fractures of T12 and L1. 9. Left lower lobe infiltrate. 10. Severe protein calorie malnutrition. SUBJECTIVE: The patient remains very weak and not able to do much of anything for himself. His C. diff came back positive yesterday. He has been on Flagyl and p.o. vancomycin. Zosyn was discontinued. Pending discussion with ID. He did receive several doses yesterday. He does not appear to be in any kind of respiratory distress and is on the usual 2 liters that he is on at home at [place]. Diarrhea has gotten better. He is putting out adequate urine. There is some discussion whether to place him on hospice. OBJECTIVE: GENERAL: Intake 6110, output is 1660, balance of 4450, weight gain of 8 pounds. Color is pale, weak. HEENT: Tongue is still quite dry, but he is a mouth breather. NECK: Supple. LUNGS: Clear. CARDIOVASCULAR: Regular rhythm and rate. ABDOMEN: Soft, mildly tender. Bowel sounds positive. EXTREMITIES: Without edema. LABORATORY DATA: White count is 11.5, decreased from 16.2, hemoglobin 10.7, hematocrit 31.9. Chemistry, slightly acidotic, CO2 is 19, BUN 31, creatinine 1.4, improved. Procalcitonin was 0.85. Albumin is 2. Chest x-ray done today after rehydration shows left basilar infiltrate similar to prior and atelectasis on the right side as well. PLAN: Continue metronidazole and vancomycin p.o. We are weaning him off the Levophed, decreased the IV fluids. He is on DVT prophylaxis and will discuss hospice. AUGUSTO LAU DO DR: DARON/cleo JOB#: [id number] / [id number]
--- NOTE | 2017-07-29 06:13 | PDOC ---
PROGRESS NOTES Assessment 1. Sepsis due to C Dif colitis: Procalcitonin was 0.85. Will monitor this. Pt now off Levophed drip. Hopefully can get off IVF soon as well. Pt reports he ate jello this morning without getting diarrhea, which is a good sign. Continue PO Vanc and IVF. Levophed PRN if BP drops. F/u on labs this morning. 2. C. Dif colitis: Pt on probiotics and PO Vanc. Abdomen soft. 3. LLL pneumonia, nosocomial: Continue Zosyn and Zmax. Transition to PO abx once pt weaned off all supportive IV meds. 4. DVT proph: Lovenox. 5. Severe protein-calorie malnutrition: Supplements BID as snacks. 6. Disp: Pt will be going back to [facility] when stable for discharge. Problems: Plan of Care: see other orders Subjective Pt doing well this morning. He is off Levophed drip, BP holding steady. Denies pain. States he was able to eat jello this morning "and it didn't go right through me." Denies fever or vomiting. No SOA or chest pain. Pt states he is pleased that things are improving. Objective Vital Signs Date Time Temp Pulse Resp B/P (MAP) Pulse Ox O2 Delivery O2 Flow Rate FiO2 07/29/17 05:49 98.1 84 18 108/51 (70) 95 Nasal Cannula 3.0 Intake and Output 07/29/17 06:59 Intake Total 4140 ml Output Total 1551 ml Balance 2589 ml Intake Oral 1390 ml IV Total 2750 ml Output Urine Total 1550 ml Stool Total 1 ml # Bowel Movements 3 Abdomen: Soft, No tenderness, Other (bowel sounds still very active but normal in pitch) Heart: Regular rate, Normal S1, Normal S2, No murmurs Extremities: Normal pulses, Other (1+ edema in hands and feet) General: Alert, Oriented X3, Cooperative, No acute distress HEENT: Atraumatic, PERRLA, EOMI, Mucous membr. moist/pink Lungs: Other (Diminished breath sounds in bilateral bases, otherwise clear with normal non-labored respiratory effort) Neck: No JVD, No thyromegaly, No LAD Neuro: Normal tone, Cranial nerves 3-12 NL Psych/Mental Status: Mental status NL, Mood NL Skin: No rashes (Both heels w/ stage 1 pressure ulcers, were present on admission. Padded bandaids are present. ) Review of Relevant I have reviewed the following items lisa (where applicable) has been applied. Labs Laboratory Tests Test 07/27/17 07:50 07/28/17 06:00 White Blood Count 13.0 x10^3/uL (4.0-11.0) 11.5 x10^3/uL (4.0-11.0) Red Blood Count 3.50 x10^6/uL (4.30-5.70) 3.54 x10^6/uL (4.30-5.70) Hemoglobin 10.5 g/dL (13.0-17.5) 10.7 g/dL (13.0-17.5) Hematocrit 31.9 % (39.0-53.0) 31.9 % (39.0-53.0) Mean Corpuscular Volume 91 fL (79-100) 90 fL (79-100) Mean Corpuscular Hemoglobin 30 pg (25-35) 30 pg (25-35) Mean Corpuscular Hemoglobin Concent 33 g/dL (31-37) 33 g/dL (31-37) Red Cell Distribution Width 15.0 % (11.5-14.5) 14.7 % (11.5-14.5) Platelet Count 225 x10^3/uL (140-400) 238 x10^3/uL (140-400) Neutrophils (%) (Auto) 76 % (31-73) 73 % (31-73) Lymphocytes (%) (Auto) 13 % (24-48) 12 % (24-48) Monocytes (%) (Auto) 9 % (0-9) 11 % (0-9) Eosinophils (%) (Auto) 3 % (0-3) 3 % (0-3) Basophils (%) (Auto) 0 % (0-3) 1 % (0-3) Neutrophils # (Auto) 9.9 x10^3uL (1.8-7.7) 8.4 x10^3uL (1.8-7.7) Lymphocytes # (Auto) 1.7 x10^3/uL (1.0-4.8) 1.4 x10^3/uL (1.0-4.8) Monocytes # (Auto) 1.1 x10^3/uL (0.0-1.1) 1.3 x10^3/uL (0.0-1.1) Eosinophils # (Auto) 0.3 x10^3/uL (0.0-0.7) 0.3 x10^3/uL (0.0-0.7) Basophils # (Auto) 0.0 x10^3/uL (0.0-0.2) 0.1 x10^3/uL (0.0-0.2) Sodium Level 143 mmol/L (136-145) 139 mmol/L (136-145) Potassium Level 3.4 mmol/L (3.5-5.1) 3.7 mmol/L (3.5-5.1) Chloride Level 110 mmol/L (98-107) 109 mmol/L (98-107) Carbon Dioxide Level 23 mmol/L (21-32) 19 mmol/L (21-32) Anion Gap 10 (6-14) 11 (6-14) Blood Urea Nitrogen 46 mg/dL (8-26) 31 mg/dL (8-26) Creatinine 1.7 mg/dL (0.7-1.3) 1.4 mg/dL (0.7-1.3) Estimated GFR (Cockcroft-Gault) 38.4 48.1 BUN/Creatinine Ratio 27 (6-20) 22 (6-20) Glucose Level 96 mg/dL (70-99) 119 mg/dL (70-99) Calcium Level 8.1 mg/dL (8.5-10.1) 7.9 mg/dL (8.5-10.1) Magnesium Level 1.6 mg/dL (1.8-2.4) 1.9 mg/dL (1.8-2.4) Total Bilirubin 0.1 mg/dL (0.2-1.0) 0.2 mg/dL (0.2-1.0) Aspartate Amino Transf (AST/SGOT) 17 U/L (15-37) 20 U/L (15-37) Alanine Aminotransferase (ALT/SGPT) 22 U/L (16-63) 21 U/L (16-63) Alkaline Phosphatase 113 U/L (46-116) 73 U/L (46-116) Total Protein 5.9 g/dL (6.4-8.2) 5.9 g/dL (6.4-8.2) Albumin 2.0 g/dL (3.4-5.0) 2.0 g/dL (3.4-5.0) Albumin/Globulin Ratio 0.5 (1.0-1.7) 0.5 (1.0-1.7) Procalcitonin 0.85 ng/mL (0.00-0.10) Microbiology 07/26/17 Blood Culture - Preliminary, Resulted NO GROWTH AFTER 2 DAYS Medications Current Medications Sodium Chloride 1,000 ml @ 1,000 mls/hr Q1H IV Last administered on 23:07; Start 07/26/17 at 22:30; Stop 07/26/17 at 23:29; Status DC Ondansetron HCl (Zofran) 8 mg 1X ONCE IV Last administered on 07/26/17 23:08 ; Start 07/26/17 at 22:30; Stop 07/26/17 at 22:31; Status DC Famotidine (Pepcid Vial) 20 mg 1X ONCE IVP Last administered on 07/26/17 23: 07; Start 07/26/17 at 22:30; Stop 07/26/17 at 22:31; Status DC Vancomycin HCl 1 gm/Sodium Chloride 250 ml @ 250 mls/hr 1X ONCE IV ; Start at 22:00; Stop 07/26/17 at 22:59; Status UNV Vancomycin HCl 2 gm/Sodium Chloride 500 ml @ 250 mls/hr 1X ONCE IV Last administered on 07/26/17 23:07; Start 07/26/17 at 23:00; Stop 07/27/17 at 00 :59; Status DC Vancomycin HCl (Vanco Per Pharmacy) 1 each PRN DAILY PRN MC SEE COMMENTS Last administered on 07/27/17 04:59; Start 07/26/17 at 22:30; Stop 07/27/17 at 19 :01; Status DC Sodium Chloride 500 ml @ As Directed STK-MED ONCE .ROUTE ; Start 07/26/17 at 22:55; Stop 07/26/17 at 22:56; Status DC Vancomycin HCl 1 gm STK-MED ONCE .ROUTE ; Start 07/26/17 at 22:55; Stop at 22:56; Status DC Metronidazole 100 ml @ 100 mls/hr 1X ONCE IV Last administered on 07/27/17 00:30; Start 07/27/17 at 00:30; Stop 07/27/17 at 01:29; Status DC Ceftriaxone Sodium 1 gm/ Sodium Chloride 50 ml @ 100 mls/hr 1X ONCE IV Last administered on 07/27/17 02:16; Start 07/27/17 at 00:30; Stop 07/27/17 at 19 :01; Status DC Sodium Chloride 50 ml @ As Directed STK-MED ONCE .ROUTE ; Start 07/27/17 at 02: 11; Stop 07/27/17 at 02:12; Status DC Ceftriaxone Sodium (Rocephin) 1 gm STK-MED ONCE IV ; Start 07/27/17 at 02:11; Stop 07/27/17 at 02:12; Status DC Sodium Chloride 1,000 ml @ 1,000 mls/hr Q1H IV Last administered on 06:16; Start 07/27/17 at 04:30; Stop 07/27/17 at 07:21; Status DC Sodium Chloride 1,000 ml @ 75 mls/hr [id number] IV Last administered on 01:58; Start 07/27/17 at 08:00 Vancomycin HCl 1.5 gm/Sodium Chloride 500 ml @ 250 mls/hr Q24H IV ; Start at 23:00; Stop 07/27/17 at 23:00; Status DC Vancomycin HCl 1 each 1X ONCE MC ; Start 07/28/17 at 22:30; Stop 07/28/17 at 22:31; Status Cancel Acetaminophen (Tylenol) 325 mg PRN Q8HRS PRN PO MILD PAIN; Start 07/27/17 at 07:30 Aspirin (Children'S Aspirin) 81 mg DAILY PO Last administered on 07/28/17 10: 29; Start 07/27/17 at 09:00 Enoxaparin Sodium (Lovenox) 40 mg DAILY SQ Last administered on 07/28/17 10: 29; Start 07/27/17 at 09:00 Guaifenesin (Mucinex Er) 600 mg BID PO Last administered on 07/28/17 20:47; Start 07/27/17 at 09:00 Albuterol/ Ipratropium (Duoneb) 3 ml BID NEB Last administered on 07/28/17 20 :41; Start 07/27/17 at 09:00 Nystatin (Nystop) 1 benitez BID TP Last administered on 07/28/17 20:47; Start at 09:00 Sertraline HCl (Zoloft) 100 mg DAILY PO Last administered on 07/28/17 10:29; Start 07/27/17 at 09:00 Simvastatin (Zocor) 40 mg DAILY PO Last administered on 07/28/17 10:29; Start 07/27/17 at 09:00 Tramadol HCl (Ultram) 50 mg PRN Q8HRS PRN PO PAIN; Start 07/27/17 at 07:30 Vitamin D (Vitamin D3) 5,000 unit DAILY PO Last administered on 07/28/17 10: 29; Start 07/27/17 at 09:00 Multivitamins/ Calcium (Thera-M Plus) 1 tab DAILY PO Last administered on 07/28 10:29; Start 07/27/17 at 09:00 Dopamine HCl/ Dextrose 250 ml @ 17.361 mls/ hr 1X ONCE IV Last administered on 07/27/17 09:40; Start 07/27/17 at 09:30; Stop 07/27/17 at 09:54; Status DC Magnesium Sulfate 50 ml @ 25 mls/hr 1X ONCE IV Last administered on 10:15; Start 07/27/17 at 10:00; Stop 07/27/17 at 11:59; Status DC Norepinephrine Bitartrate 8 mg/ Sodium Chloride 258 ml @ 0 mls/hr CONT PRN IV SEE I/O RECORD Last administered on 07/28/17 02:17; Start 07/27/17 at 10:00 Vancomycin HCl (Vanco Per Pharmacy) 1 each PRN DAILY PRN MC SEE COMMENTS; Start 07/27/17 at 10:00; Status UNV Metronidazole 100 ml @ 100 mls/hr Q8HRS IV Last administered on 07/28/17 13: 37; Start 07/27/17 at 14:00; Stop 07/28/17 at 16:59; Status DC Piperacillin Sod/ Tazobactam Sod 3.375 gm/Sodium Chloride 50 ml @ 100 mls/hr Q6H IV Last administered on 07/27/17 17:25; Start 07/27/17 at 10:00; Stop 07/27/17 at 19:01; Status DC Potassium Chloride (Klor-Con) 40 meq 1X ONCE PO Last administered on 12:13; Start 07/27/17 at 12:15; Stop 07/27/17 at 12:16; Status DC Vancomycin HCl 250 mg Q6HRS PO Last administered on 07/28/17 05:12; Start at 20:00; Stop 07/28/17 at 09:57; Status DC Lactobacillus Rhamnosus (Culturelle) 1 cap BID PO Last administered on 20:46; Start 07/27/17 at 21:00 Vancomycin HCl 125 mg Q6H PO Last administered on 07/29/17 05:50; Start at 12:00 Piperacillin Sod/ Tazobactam Sod (Zosyn Per Pharmacy) 1 each PRN DAILY PRN MC SEE COMMENTS; Start 07/28/17 at 17:00 Azithromycin 500 mg/Sodium Chloride 250 ml @ 250 mls/hr Q24H IV Last administered on 07/28/17 18:19; Start 07/28/17 at 17:00 Piperacillin Sod/ Tazobactam Sod 3.375 gm/Sodium Chloride 50 ml @ 100 mls/hr Q6HRS IV Last administered on 07/29/17 05:50; Start 07/28/17 at 18:00 Active Scripts Active Reported Aspirin 81 Mg Tab.chew 81 Mg PO DAILY Lovenox (Enoxaparin Sodium) 40 Mg/0.4 Ml Disp.syrin 0.4 Ml SQ DAILY Tylenol (Acetaminophen) 325 Mg Tablet 1 Tab PO PRN Q8HRS PRN Mucinex (Guaifenesin) 600 Mg Tablet.er 1 Tab PO BID Duoneb 0.5-3(2.5) Mg/3 Ml (Albuterol/Ipratropium) 3 Ml Ampul.neb 3 Ml NEB BID Multivitamins (Multivitamin) 1 Each Tablet 1 Tab PO DAILY Nystatin 15 Gm Powder 15 Gm TP BID Tramadol Hcl (Tramadol HCl) 50 Mg Tablet 50 Mg PO PRN Q8HRS PRN Simvastatin 40 Mg Tablet 40 Mg PO DAILY Lisinopril 20 Mg Tablet 10 Mg PO DAILY Vitamin D3 (Cholecalciferol (Vitamin D3)) 5,000 Unit Tablet 1 Tab PO DAILY Zoloft (Sertraline Hcl) 100 Mg Tablet 1 Tab PO DAILY Vitals/I & O Vital Sign - Last 24 Hours 07/28/17 07/28/17 07/28/17 07/28/17 06:03 07:03 08:20 08:43 Temp 97.5 Pulse 81 78 81 Resp 16 16 16 B/P (MAP) 125/63 (83) 146/61 (89) 141/61 (87) Pulse Ox 97 94 95 O2 Delivery Nasal Cannula Nasal Cannula Nasal Cannula Nasal Cannula O2 Flow Rate 3.0 3.0 3.0 3.0 07/28/17 07/28/17 07/28/17 07/28/17 09:21 09:38 10:18 11:18 Pulse 78 88 85 Resp 15 20 B/P (MAP) 120/57 (78) 103/47 (65) 119/56 (77) Pulse Ox 98 99 95 96 O2 Delivery Nasal Cannula Nasal Cannula Nasal Cannula Nasal Cannula O2 Flow Rate 3.0 2.0 3.0 2.0 07/28/17 07/28/17 07/28/17 07/28/17 11:48 12:10 13:18 14:03 Pulse 88 95 88 Resp 17 B/P (MAP) 120/66 (84) 103/56 (72) 104/59 (74) Pulse Ox 96 95 95 O2 Delivery Nasal Cannula Nasal Cannula Nasal Cannula Nasal Cannula O2 Flow Rate 2.0 2.0 2.0 2.0 07/28/17 07/28/17 07/28/17 07/28/17 15:01 16:22 16:23 17:07 Temp 98.6 Pulse 88 85 84 Resp 18 15 B/P (MAP) 90/50 (63) 112/62 (79) 116/63 (80) Pulse Ox 97 96 93 O2 Delivery Nasal Cannula Nasal Cannula Nasal Cannula O2 Flow Rate 2.0 2.0 2.0 07/28/17 07/28/17 07/28/17 07/28/17 17:49 19:01 20:00 20:01 Temp 99.4 Pulse 85 84 80 Resp 18 22 19 B/P (MAP) 119/59 (79) 119/49 (72) 104/55 (71) Pulse Ox 94 91 93 O2 Delivery Nasal Cannula Nasal Cannula Nasal Cannula Nasal Cannula O2 Flow Rate 2.0 3.0 2.0 3.0 07/28/17 07/28/17 07/28/17 07/28/17 20:41 20:57 22:02 23:15 Pulse 88 91 91 Resp 16 B/P (MAP) 113/59 (77) 115/59 (77) 118/56 (76) Pulse Ox 97 97 95 O2 Delivery Nasal Cannula Nasal Cannula Nasal Cannula Nasal Cannula O2 Flow Rate 2.0 3.0 3.0 3.0 07/28/17 07/28/17 07/29/17 07/29/17 23:56 23:59 00:58 02:06 Pulse 90 90 90 Resp 16 B/P (MAP) 104/61 (75) 109/57 (74) 93/47 (62) Pulse Ox 95 93 96 O2 Delivery Nasal Cannula Nasal Cannula Nasal Cannula Nasal Cannula O2 Flow Rate 3.0 2.0 3.0 3.0 07/29/17 07/29/17 07/29/17 07/29/17 02:56 04:00 04:14 05:49 Temp 98.1 Pulse 86 86 84 Resp 18 B/P (MAP) 93/47 (62) 91/46 (61) 108/51 (70) Pulse Ox 94 95 95 O2 Delivery Nasal Cannula Nasal Cannula Nasal Cannula Nasal Cannula O2 Flow Rate 3.0 2.0 3.0 3.0 Intake and Output 07/28/17 07/28/17 07/29/17 14:59 22:59 06:59 Intake Total 2340 ml 575 ml 1225 ml Output Total 550 ml 451 ml 550 ml Balance 1790 ml 124 ml 675 ml RITA HARTLEY MD Jul 29, 2017 06:13
[2017-07-29 06:18] LABS: BASO % 0 % (0-3); EOS # 0.4 x10^3/uL (0.0-0.7); EOS % 5 % (0-3); HEMATOCRIT 28.4 % (39.0-53.0); HEMOGLOBIN 9.5 g/dL (13.0-17.5); LYMPH # 1.1 x10^3/uL (1.0-4.8); LYMPH % 14 % (24-48); MEAN CORPUSCULAR HEMOGLOBIN 30 pg (25-35); MEAN CORPUSCULAR HGB CONC 33 g/dL (31-37); MEAN CORPUSCULAR VOLUME 91 fL (79-100); MONO % 14 % (0-9); NEUT # 5.1 x10^3uL (1.8-7.7); NEUT % 66 % (31-73); PLATELET COUNT 197 x10^3/uL (140-400); RED BLOOD COUNT 3.14 x10^6/uL (4.30-5.70); RED CELL DISTRIBUTION WIDTH 14.7 % (11.5-14.5); WHITE BLOOD COUNT 7.6 x10^3/uL (4.0-11.0)
[2017-07-29 06:32] LABS: ALBUMIN 1.7 g/dL (3.4-5.0); ALBUMIN/GLOBULIN RATIO 0.5 (1.0-1.7); CREATININE 1.3 mg/dL (0.7-1.3); GFR 52.3; MAGNESIUM 1.6 mg/dL (1.8-2.4); POTASSIUM 3.7 mmol/L (3.5-5.1); TOTAL BILIRUBIN 0.3 mg/dL (0.2-1.0); TOTAL PROTEIN 5.2 g/dL (6.4-8.2)
[2017-07-29] MEDS ORDERED: MAGNESIUM SULFATE 2GM 50 ML IV ONE (08:00)
[2017-07-29] MEDS: MULTIVITAMIN with MINERAL TABLET. PO SCH (09:57)
[2017-07-29] MEDS: ENOXAPARIN 40 MG/0.4 ML DISP.SYRIN. SQ SCH (09:58)
[2017-07-29] MEDS: LACTOBACILLUS RHAMNOSUS GG 1 CAPSULE. PO SCH ×2 (09:58→20:51)
[2017-07-29] MEDS: CHOLECALCIFEROL (VITAMIN D3) 1,000 UNIT TABLET PO SCH (09:58)
[2017-07-29] MEDS: ASPIRIN 81 MG TAB.CHEW PO SCH (09:58)
[2017-07-29] MEDS: SIMVASTATIN 40 MG TABLET. PO SCH (09:58)
[2017-07-29] MEDS: SERTRALINE 100 MG TABLET. PO SCH (09:58)
[2017-07-29] MEDS: NYSTATIN TOPICAL POWDER 15GM BOTTLE. TP SCH ×2 (10:01→20:55)
[2017-07-29] MEDS: IPRATRPIUM/ALBUTEROL 0.5/2.5MG 3 ML NEBU. NEB SCH ×2 (10:13→19:58)
[2017-07-29] MEDS: AZITHROMYCIN 250 MG TABLET. PO SCH (17:31)
[2017-07-30 00:06] VITALS: BP 121/56
[2017-07-30] MEDS: PIPERACILLIN/TAZOBACTAM 3.375 GM in IV NORMAL SALINE 50ML 50 ML IV SCH ×3 (06:17→18:00)
[2017-07-30 06:18] VITALS: BP 178/69
[2017-07-30] MEDS: VANCOMYCIN 125 MG/2.5 ML ORAL SOLUTION. PO SCH ×3 (06:19→18:00)
[2017-07-30] MEDS: LACTOBACILLUS RHAMNOSUS GG 1 CAPSULE. PO SCH ×2 (09:11→20:17)
[2017-07-30] MEDS: MULTIVITAMIN with MINERAL TABLET. PO SCH (09:11)
[2017-07-30] MEDS: CHOLECALCIFEROL (VITAMIN D3) 1,000 UNIT TABLET PO SCH (09:11)
[2017-07-30] MEDS: SIMVASTATIN 40 MG TABLET. PO SCH (09:11)
[2017-07-30] MEDS: ASPIRIN 81 MG TAB.CHEW PO SCH (09:11)
[2017-07-30] MEDS: SERTRALINE 100 MG TABLET. PO SCH (09:12)
[2017-07-30] MEDS: ENOXAPARIN 40 MG/0.4 ML DISP.SYRIN. SQ SCH (09:12)
[2017-07-30] MEDS: NYSTATIN TOPICAL POWDER 15GM BOTTLE. TP SCH ×2 (09:18→20:17)
--- NOTE | 2017-07-30 09:46 | PDOC ---
PROGRESS NOTES Assessment 1. Sepsis due to C Dif colitis: Procalcitonin down to 0.61 yesterday. Pt now off Levophed drip. BP up. Will d/c IVF. Continue to advance diet. Pt feeling much better. Continue PO Vanc. 2. C. Dif colitis: Pt on probiotics and PO Vanc. Abdomen soft. 3. LLL pneumonia, nosocomial: Continue Zosyn and Zmax. Plan to change Zosyn to Augmentin or Omnicef at discharge. 4. DVT proph: Lovenox. 5. Severe protein-calorie malnutrition: Supplements BID as snacks. 6. Disp: Pt will be going back to [facility] when stable for discharge. Problems: Plan of Care: see other orders Subjective Pt says he feels ok. C/o some stiff shoulders, nurse states pt is turned frequently and uses his arms to help turn, wondering if maybe that is the cause. Pt denies fever. He is a relatively poor historian. Diarrhea resolved. No n/v. No SOA or chest pain. Tolerating regular diet. Objective Vital Signs Date Time Temp Pulse Resp B/P (MAP) Pulse Ox O2 Delivery O2 Flow Rate FiO2 07/30/17 06:18 77 19 178/69 (105) 94 Nasal Cannula 2.0 07/29/17 21:18 98.4 Intake and Output 07/30/17 07:00 Intake Total 2650 ml Output Total 700 ml Balance 1950 ml Intake Oral 1200 ml IV Total 1450 ml Output Urine Total 700 ml # Bowel Movements 5 Abdomen: Normal bowel sounds, Soft, No tenderness, No masses Heart: Regular rate, Normal S1, Normal S2, No murmurs Extremities: Other (1+ BLE edema, shallow ulcers on both heels (present on admission), floating heel pads ordered yesterday.) General: Alert, Cooperative, No acute distress HEENT: Atraumatic, PERRLA, EOMI, Mucous membr. moist/pink Lungs: Other (Bibasilar crackles, otherwise clear and non-labored.) Neck: No JVD, No LAD Neuro: Normal tone, Cranial nerves 3-12 NL Psych/Mental Status: Mood NL Skin: No rashes Review of Relevant I have reviewed the following items lisa (where applicable) has been applied. Labs Laboratory Tests Test 07/28/17 15:10 07/29/17 05:58 Procalcitonin 0.61 ng/mL (0.00-0.10) White Blood Count 7.6 x10^3/uL (4.0-11.0) Red Blood Count 3.14 x10^6/uL (4.30-5.70) Hemoglobin 9.5 g/dL (13.0-17.5) Hematocrit 28.4 % (39.0-53.0) Mean Corpuscular Volume 91 fL (79-100) Mean Corpuscular Hemoglobin 30 pg (25-35) Mean Corpuscular Hemoglobin Concent 33 g/dL (31-37) Red Cell Distribution Width 14.7 % (11.5-14.5) Platelet Count 197 x10^3/uL (140-400) Neutrophils (%) (Auto) 66 % (31-73) Lymphocytes (%) (Auto) 14 % (24-48) Monocytes (%) (Auto) 14 % (0-9) Eosinophils (%) (Auto) 5 % (0-3) Basophils (%) (Auto) 0 % (0-3) Neutrophils # (Auto) 5.1 x10^3uL (1.8-7.7) Lymphocytes # (Auto) 1.1 x10^3/uL (1.0-4.8) Monocytes # (Auto) 1.0 x10^3/uL (0.0-1.1) Eosinophils # (Auto) 0.4 x10^3/uL (0.0-0.7) Basophils # (Auto) 0.0 x10^3/uL (0.0-0.2) Sodium Level 141 mmol/L (136-145) Potassium Level 3.7 mmol/L (3.5-5.1) Chloride Level 110 mmol/L (98-107) Carbon Dioxide Level 22 mmol/L (21-32) Anion Gap 9 (6-14) Blood Urea Nitrogen 19 mg/dL (8-26) Creatinine 1.3 mg/dL (0.7-1.3) Estimated GFR (Cockcroft-Gault) 52.3 BUN/Creatinine Ratio 15 (6-20) Glucose Level 100 mg/dL (70-99) Calcium Level 8.0 mg/dL (8.5-10.1) Magnesium Level 1.6 mg/dL (1.8-2.4) Total Bilirubin 0.3 mg/dL (0.2-1.0) Aspartate Amino Transf (AST/SGOT) 14 U/L (15-37) Alanine Aminotransferase (ALT/SGPT) 17 U/L (16-63) Alkaline Phosphatase 58 U/L (46-116) Total Protein 5.2 g/dL (6.4-8.2) Albumin 1.7 g/dL (3.4-5.0) Albumin/Globulin Ratio 0.5 (1.0-1.7) Microbiology 07/26/17 Blood Culture - Preliminary, Resulted NO GROWTH AFTER 3 DAYS Medications Current Medications Sodium Chloride 1,000 ml @ 1,000 mls/hr Q1H IV Last administered on 23:07; Start 07/26/17 at 22:30; Stop 07/26/17 at 23:29; Status DC Ondansetron HCl (Zofran) 8 mg 1X ONCE IV Last administered on 07/26/17 23:08 ; Start 07/26/17 at 22:30; Stop 07/26/17 at 22:31; Status DC Famotidine (Pepcid Vial) 20 mg 1X ONCE IVP Last administered on 07/26/17 23: 07; Start 07/26/17 at 22:30; Stop 07/26/17 at 22:31; Status DC Vancomycin HCl 1 gm/Sodium Chloride 250 ml @ 250 mls/hr 1X ONCE IV ; Start at 22:00; Stop 07/26/17 at 22:59; Status UNV Vancomycin HCl 2 gm/Sodium Chloride 500 ml @ 250 mls/hr 1X ONCE IV Last administered on 07/26/17 23:07; Start 07/26/17 at 23:00; Stop 07/27/17 at 00 :59; Status DC Vancomycin HCl (Vanco Per Pharmacy) 1 each PRN DAILY PRN MC SEE COMMENTS Last administered on 07/27/17 04:59; Start 07/26/17 at 22:30; Stop 07/27/17 at 19 :01; Status DC Sodium Chloride 500 ml @ As Directed STK-MED ONCE .ROUTE ; Start 07/26/17 at 22:55; Stop 07/26/17 at 22:56; Status DC Vancomycin HCl 1 gm STK-MED ONCE .ROUTE ; Start 07/26/17 at 22:55; Stop at 22:56; Status DC Metronidazole 100 ml @ 100 mls/hr 1X ONCE IV Last administered on 07/27/17 00:30; Start 07/27/17 at 00:30; Stop 07/27/17 at 01:29; Status DC Ceftriaxone Sodium 1 gm/ Sodium Chloride 50 ml @ 100 mls/hr 1X ONCE IV Last administered on 07/27/17 02:16; Start 07/27/17 at 00:30; Stop 07/27/17 at 19 :01; Status DC Sodium Chloride 50 ml @ As Directed STK-MED ONCE .ROUTE ; Start 07/27/17 at 02: 11; Stop 07/27/17 at 02:12; Status DC Ceftriaxone Sodium (Rocephin) 1 gm STK-MED ONCE IV ; Start 07/27/17 at 02:11; Stop 07/27/17 at 02:12; Status DC Sodium Chloride 1,000 ml @ 1,000 mls/hr Q1H IV Last administered on 06:16; Start 07/27/17 at 04:30; Stop 07/27/17 at 07:21; Status DC Sodium Chloride 1,000 ml @ 75 mls/hr [id number] IV Last administered on 17:31; Start 07/27/17 at 08:00 Vancomycin HCl 1.5 gm/Sodium Chloride 500 ml @ 250 mls/hr Q24H IV ; Start at 23:00; Stop 07/27/17 at 23:00; Status DC Vancomycin HCl 1 each 1X ONCE MC ; Start 07/28/17 at 22:30; Stop 07/28/17 at 22:31; Status Cancel Acetaminophen (Tylenol) 325 mg PRN Q8HRS PRN PO MILD PAIN; Start 07/27/17 at 07:30 Aspirin (Children'S Aspirin) 81 mg DAILY PO Last administered on 07/30/17 09: 11; Start 07/27/17 at 09:00 Enoxaparin Sodium (Lovenox) 40 mg DAILY SQ Last administered on 07/30/17 09: 12; Start 07/27/17 at 09:00 Guaifenesin (Mucinex Er) 600 mg BID PO Last administered on 07/30/17 09:11; Start 07/27/17 at 09:00 Albuterol/ Ipratropium (Duoneb) 3 ml BID NEB Last administered on 07/29/17 19 :58; Start 07/27/17 at 09:00 Nystatin (Nystop) 1 benitez BID TP Last administered on 07/30/17 09:18; Start at 09:00 Sertraline HCl (Zoloft) 100 mg DAILY PO Last administered on 07/30/17 09:12; Start 07/27/17 at 09:00 Simvastatin (Zocor) 40 mg DAILY PO Last administered on 07/30/17 09:11; Start 07/27/17 at 09:00 Tramadol HCl (Ultram) 50 mg PRN Q8HRS PRN PO PAIN; Start 07/27/17 at 07:30 Vitamin D (Vitamin D3) 5,000 unit DAILY PO Last administered on 07/30/17 09: 11; Start 07/27/17 at 09:00 Multivitamins/ Calcium (Thera-M Plus) 1 tab DAILY PO Last administered on 07/30 09:11; Start 07/27/17 at 09:00 Dopamine HCl/ Dextrose 250 ml @ 17.361 mls/ hr 1X ONCE IV Last administered on 07/27/17 09:40; Start 07/27/17 at 09:30; Stop 07/27/17 at 09:54; Status DC Magnesium Sulfate 50 ml @ 25 mls/hr 1X ONCE IV Last administered on 10:15; Start 07/27/17 at 10:00; Stop 07/27/17 at 11:59; Status DC Norepinephrine Bitartrate 8 mg/ Sodium Chloride 258 ml @ 0 mls/hr CONT PRN IV SEE I/O RECORD Last administered on 07/28/17 02:17; Start 07/27/17 at 10:00 Vancomycin HCl (Vanco Per Pharmacy) 1 each PRN DAILY PRN MC SEE COMMENTS; Start 07/27/17 at 10:00; Status UNV Metronidazole 100 ml @ 100 mls/hr Q8HRS IV Last administered on 07/28/17 13: 37; Start 07/27/17 at 14:00; Stop 07/28/17 at 16:59; Status DC Piperacillin Sod/ Tazobactam Sod 3.375 gm/Sodium Chloride 50 ml @ 100 mls/hr Q6H IV Last administered on 07/27/17 17:25; Start 07/27/17 at 10:00; Stop 07/27/17 at 19:01; Status DC Potassium Chloride (Klor-Con) 40 meq 1X ONCE PO Last administered on 12:13; Start 07/27/17 at 12:15; Stop 07/27/17 at 12:16; Status DC Vancomycin HCl 250 mg Q6HRS PO Last administered on 07/28/17 05:12; Start at 20:00; Stop 07/28/17 at 09:57; Status DC Lactobacillus Rhamnosus (Culturelle) 1 cap BID PO Last administered on 09:11; Start 07/27/17 at 21:00 Vancomycin HCl 125 mg Q6H PO Last administered on 07/30/17 06:19; Start at 12:00 Piperacillin Sod/ Tazobactam Sod (Zosyn Per Pharmacy) 1 each PRN DAILY PRN MC SEE COMMENTS; Start 07/28/17 at 17:00 Azithromycin 500 mg/Sodium Chloride 250 ml @ 250 mls/hr Q24H IV Last administered on 07/28/17 18:19; Start 07/28/17 at 17:00; Stop 07/29/17 at 12 :45; Status DC Piperacillin Sod/ Tazobactam Sod 3.375 gm/Sodium Chloride 50 ml @ 100 mls/hr Q6HRS IV Last administered on 07/30/17 06:17; Start 07/28/17 at 18:00 Magnesium Sulfate 50 ml @ 25 mls/hr 1X ONCE IV Last administered on 09:57; Start 07/29/17 at 08:00; Stop 07/29/17 at 09:59; Status DC Azithromycin (Zithromax) 500 mg Q24H PO Last administered on 07/29/17 17:31; Start 07/29/17 at 17:00 Active Scripts Active Reported Aspirin 81 Mg Tab.chew 81 Mg PO DAILY Lovenox (Enoxaparin Sodium) 40 Mg/0.4 Ml Disp.syrin 0.4 Ml SQ DAILY Tylenol (Acetaminophen) 325 Mg Tablet 1 Tab PO PRN Q8HRS PRN Mucinex (Guaifenesin) 600 Mg Tablet.er 1 Tab PO BID Duoneb 0.5-3(2.5) Mg/3 Ml (Albuterol/Ipratropium) 3 Ml Ampul.neb 3 Ml NEB BID Multivitamins (Multivitamin) 1 Each Tablet 1 Tab PO DAILY Nystatin 15 Gm Powder 15 Gm TP BID Tramadol Hcl (Tramadol HCl) 50 Mg Tablet 50 Mg PO PRN Q8HRS PRN Simvastatin 40 Mg Tablet 40 Mg PO DAILY Lisinopril 20 Mg Tablet 10 Mg PO DAILY Vitamin D3 (Cholecalciferol (Vitamin D3)) 5,000 Unit Tablet 1 Tab PO DAILY Zoloft (Sertraline Hcl) 100 Mg Tablet 1 Tab PO DAILY Vitals/I & O Vital Sign - Last 24 Hours 07/29/17 07/29/17 07/29/17 07/29/17 10:13 11:23 16:41 20:00 Temp 98.0 Pulse 89 81 Resp 18 B/P (MAP) 122/62 (82) 140/63 (88) Pulse Ox 96 93 95 O2 Delivery Nasal Cannula Room Air Room Air Nasal Cannula O2 Flow Rate 2.0 2.0 07/29/17 07/29/17 07/30/17 07/30/17 20:00 21:18 00:06 06:18 Temp 98.4 Pulse 80 75 77 Resp 13 19 19 B/P (MAP) 133/52 (79) 121/56 (77) 178/69 (105) Pulse Ox 96 97 97 94 O2 Delivery Nasal Cannula Nasal Cannula Nasal Cannula Nasal Cannula O2 Flow Rate 2.0 2.0 2.0 2.0 Intake and Output 07/29/17 07/29/17 07/30/17 15:00 23:00 07:00 Intake Total 550 ml 1050 ml 1050 ml Output Total 700 ml Balance 550 ml 350 ml 1050 ml RITA HARTLEY MD Jul 30, 2017 09:46
[2017-07-30] MEDS: IPRATRPIUM/ALBUTEROL 0.5/2.5MG 3 ML NEBU. NEB SCH ×2 (10:10→20:11)
[2017-07-30 11:25] LABS: BASO # 0.1 x10^3/uL (0.0-0.2); BASO % 1 % (0-3); EOS # 0.6 x10^3/uL (0.0-0.7); EOS % 8 % (0-3); HEMATOCRIT 31.7 % (39.0-53.0); HEMOGLOBIN 10.6 g/dL (13.0-17.5); LYMPH # 1.7 x10^3/uL (1.0-4.8); LYMPH % 22 % (24-48); MEAN CORPUSCULAR HEMOGLOBIN 30 pg (25-35); MEAN CORPUSCULAR HGB CONC 34 g/dL (31-37); MEAN CORPUSCULAR VOLUME 90 fL (79-100); MONO # 1.1 x10^3/uL (0.0-1.1); MONO % 14 % (0-9); NEUT # 4.5 x10^3uL (1.8-7.7); NEUT % 56 % (31-73); PLATELET COUNT 228 x10^3/uL (140-400); RED BLOOD COUNT 3.55 x10^6/uL (4.30-5.70); RED CELL DISTRIBUTION WIDTH 14.5 % (11.5-14.5)
[2017-07-30 11:39] LABS: ALBUMIN 1.9 g/dL (3.4-5.0); TOTAL PROTEIN 5.7 g/dL (6.4-8.2)
[2017-07-30 11:40] LABS: ALBUMIN/GLOBULIN RATIO 0.5 (1.0-1.7); CALCIUM 8.1 mg/dL (8.5-10.1); CREATININE 1.2 mg/dL (0.7-1.3); GFR 57.4; POTASSIUM 3.2 mmol/L (3.5-5.1); TOTAL BILIRUBIN 0.3 mg/dL (0.2-1.0)
[2017-07-30] MEDS: POTASSIUM CHLORIDE 20 MEQ/15 ML ORAL LIQUID. PO SCH ×2 (12:00→16:00)
[2017-07-30] MEDS ORDERED: POTASSIUM CHLORIDE 20 MEQ TABLET.ER. PO ONE (12:30)
[2017-07-30 12:47] VITALS: BP 112/60
[2017-07-30 16:32] VITALS: BP 114/64
[2017-07-30] MEDS: AZITHROMYCIN 250 MG TABLET. PO SCH (17:00)
[2017-07-30 18:38] LABS: CALCIUM 8.1 mg/dL (8.5-10.1); CREATININE 1.2 mg/dL (0.7-1.3); GFR 57.4; POTASSIUM 3.7 mmol/L (3.5-5.1)
[2017-07-30 20:03] VITALS: BP 135/68
[2017-07-30] MEDS: MAGNESIUM OXIDE 400 MG TABLET PO SCH (20:17)
[2017-07-30 23:24] VITALS: BP 148/70
[2017-07-31] MEDS: PIPERACILLIN/TAZOBACTAM 3.375 GM in IV NORMAL SALINE 50ML 50 ML IV SCH ×3 (00:03→12:00)
[2017-07-31] MEDS: VANCOMYCIN 125 MG/2.5 ML ORAL SOLUTION. PO SCH ×4 (00:17→19:05)
[2017-07-31 05:43] VITALS: BP 151/81
[2017-07-31] MEDS: SIMVASTATIN 40 MG TABLET. PO SCH (08:32)
[2017-07-31] MEDS: MULTIVITAMIN with MINERAL TABLET. PO SCH (08:32)
[2017-07-31] MEDS: ENOXAPARIN 40 MG/0.4 ML DISP.SYRIN. SQ SCH (08:33)
[2017-07-31] MEDS: LACTOBACILLUS RHAMNOSUS GG 1 CAPSULE. PO SCH ×2 (08:33→20:20)
[2017-07-31] MEDS: CHOLECALCIFEROL (VITAMIN D3) 1,000 UNIT TABLET PO SCH (08:33)
[2017-07-31] MEDS: MAGNESIUM OXIDE 400 MG TABLET PO SCH ×2 (08:33→20:20)
[2017-07-31] MEDS: SERTRALINE 100 MG TABLET. PO SCH (08:34)
[2017-07-31] MEDS: ASPIRIN 81 MG TAB.CHEW PO SCH (08:34)
[2017-07-31] MEDS: NYSTATIN TOPICAL POWDER 15GM BOTTLE. TP SCH ×2 (09:00→20:21)
[2017-07-31 09:50] LABS: BASO # 0.1 x10^3/uL (0.0-0.2); BASO % 1 % (0-3); EOS # 0.8 x10^3/uL (0.0-0.7); EOS % 9 % (0-3); HEMATOCRIT 31.9 % (39.0-53.0); HEMOGLOBIN 10.7 g/dL (13.0-17.5); LYMPH # 1.6 x10^3/uL (1.0-4.8); LYMPH % 19 % (24-48); MEAN CORPUSCULAR HEMOGLOBIN 30 pg (25-35); MEAN CORPUSCULAR HGB CONC 34 g/dL (31-37); MEAN CORPUSCULAR VOLUME 90 fL (79-100); MONO % 12 % (0-9); NEUT # 4.9 x10^3uL (1.8-7.7); NEUT % 60 % (31-73); PLATELET COUNT 232 x10^3/uL (140-400); RED BLOOD COUNT 3.56 x10^6/uL (4.30-5.70); RED CELL DISTRIBUTION WIDTH 14.4 % (11.5-14.5); WHITE BLOOD COUNT 8.3 x10^3/uL (4.0-11.0)
[2017-07-31 10:08] LABS: ALBUMIN 1.9 g/dL (3.4-5.0); ALBUMIN/GLOBULIN RATIO 0.5 (1.0-1.7); CALCIUM 8.2 mg/dL (8.5-10.1); CREATININE 1.2 mg/dL (0.7-1.3); GFR 57.4; POTASSIUM 3.5 mmol/L (3.5-5.1); TOTAL BILIRUBIN 0.3 mg/dL (0.2-1.0); TOTAL PROTEIN 5.6 g/dL (6.4-8.2)
[2017-07-31 11:14] VITALS: BP 142/71
[2017-07-31] MEDS: IPRATRPIUM/ALBUTEROL 0.5/2.5MG 3 ML NEBU. NEB SCH ×2 (11:17→21:18)
--- NOTE | 2017-07-31 12:47 | PDOC ---
PROGRESS NOTES Diagnosis Problem Problems Medical Problems: (1) Hypotension Status: Acute Assessment 1. Sepsis due to C Dif colitis: SEpsis resolved. Continue PO Vanc. Plan is to d/c to [facility] tomorrow. 2. C. Dif colitis: Pt on probiotics and PO Vanc. Abdomen soft. Pt still having loose stools, though I suspect some caused by abx. Will change to PO abx and get CBC in AM. 3. LLL pneumonia, nosocomial: CXR unchanged, possibly atelectasis/chronic? Pt on RA. Will d/c Zosyn. Start Zmax PO only. Check CBC in AM. If WBC still down <10, will send out only on Zmax. 4. DVT proph: Lovenox. 5. Severe protein-calorie malnutrition: Supplements BID as snacks. 6. Disp: Pt will be going back to [place] when stable for discharge. Problems: Plan of Care: see other orders Subjective Pt states he is feeling well but can't stop having loose stools. Says they were better yesterday but now happening every 2-3 hours. Denies fever, blood in stool, abd pain, SOA, worsening cough, dizziness, or rash. Pt does c/o feeling weak, says "my legs feel like jelly sometimes." Objective Vital Signs Date Time Temp Pulse Resp B/P (MAP) Pulse Ox O2 Delivery O2 Flow Rate FiO2 07/31/17 11:17 94 Room Air 07/31/17 11:14 98.2 83 20 142/71 (94) 07/30/17 20:03 3.0 Intake and Output 07/31/17 07:00 Intake Total 230 ml Output Total 1025 ml Balance -795 ml Intake Oral 180 ml IV Total 50 ml Output Urine Total 1025 ml # Bowel Movements 6 Abdomen: Normal bowel sounds, Soft, No tenderness, No masses Heart: Regular rate, Normal S1, Normal S2, No murmurs Extremities: Normal pulses, Other (1+ BLE edema) General: Alert, Cooperative, No acute distress HEENT: PERRLA, EOMI, Mucous membr. moist/pink Lungs: Other (Lungs clear except for soft bibasilar crackles. Resp effort normal and nonlabored.) Neck: No JVD, No LAD Neuro: Normal speech, Normal tone, Cranial nerves 3-12 NL Psych/Mental Status: Mood NL Skin: No rashes Review of Relevant I have reviewed the following items lisa (where applicable) has been applied. Labs Laboratory Tests Test 07/30/17 11:08 07/30/17 18:00 07/31/17 09:35 White Blood Count 8.0 x10^3/uL (4.0-11.0) 8.3 x10^3/uL (4.0-11.0) Red Blood Count 3.55 x10^6/uL (4.30-5.70) 3.56 x10^6/uL (4.30-5.70) Hemoglobin 10.6 g/dL (13.0-17.5) 10.7 g/dL (13.0-17.5) Hematocrit 31.7 % (39.0-53.0) 31.9 % (39.0-53.0) Mean Corpuscular Volume 90 fL (79-100) 90 fL (79-100) Mean Corpuscular Hemoglobin 30 pg (25-35) 30 pg (25-35) Mean Corpuscular Hemoglobin Concent 34 g/dL (31-37) 34 g/dL (31-37) Red Cell Distribution Width 14.5 % (11.5-14.5) 14.4 % (11.5-14.5) Platelet Count 228 x10^3/uL (140-400) 232 x10^3/uL (140-400) Neutrophils (%) (Auto) 56 % (31-73) 60 % (31-73) Lymphocytes (%) (Auto) 22 % (24-48) 19 % (24-48) Monocytes (%) (Auto) 14 % (0-9) 12 % (0-9) Eosinophils (%) (Auto) 8 % (0-3) 9 % (0-3) Basophils (%) (Auto) 1 % (0-3) 1 % (0-3) Neutrophils # (Auto) 4.5 x10^3uL (1.8-7.7) 4.9 x10^3uL (1.8-7.7) Lymphocytes # (Auto) 1.7 x10^3/uL (1.0-4.8) 1.6 x10^3/uL (1.0-4.8) Monocytes # (Auto) 1.1 x10^3/uL (0.0-1.1) 1.0 x10^3/uL (0.0-1.1) Eosinophils # (Auto) 0.6 x10^3/uL (0.0-0.7) 0.8 x10^3/uL (0.0-0.7) Basophils # (Auto) 0.1 x10^3/uL (0.0-0.2) 0.1 x10^3/uL (0.0-0.2) Sodium Level 142 mmol/L (136-145) 142 mmol/L (136-145) 142 mmol/L (136-145) Potassium Level 3.2 mmol/L (3.5-5.1) 3.7 mmol/L (3.5-5.1) 3.5 mmol/L (3.5-5.1) Chloride Level 109 mmol/L (98-107) 109 mmol/L (98-107) 109 mmol/L (98-107) Carbon Dioxide Level 22 mmol/L (21-32) 22 mmol/L (21-32) 23 mmol/L (21-32) Anion Gap 11 (6-14) 11 (6-14) 10 (6-14) Blood Urea Nitrogen 11 mg/dL (8-26) 10 mg/dL (8-26) 9 mg/dL (8-26) Creatinine 1.2 mg/dL (0.7-1.3) 1.2 mg/dL (0.7-1.3) 1.2 mg/dL (0.7-1.3) Estimated GFR (Cockcroft-Gault) 57.4 57.4 57.4 BUN/Creatinine Ratio 9 (6-20) 8 (6-20) Glucose Level 136 mg/dL (70-99) 129 mg/dL (70-99) 148 mg/dL (70-99) Calcium Level 8.1 mg/dL (8.5-10.1) 8.1 mg/dL (8.5-10.1) 8.2 mg/dL (8.5-10.1) Total Bilirubin 0.3 mg/dL (0.2-1.0) 0.3 mg/dL (0.2-1.0) Aspartate Amino Transf (AST/SGOT) 28 U/L (15-37) 48 U/L (15-37) Alanine Aminotransferase (ALT/SGPT) 24 U/L (16-63) 37 U/L (16-63) Alkaline Phosphatase 66 U/L (46-116) 64 U/L (46-116) Total Protein 5.7 g/dL (6.4-8.2) 5.6 g/dL (6.4-8.2) Albumin 1.9 g/dL (3.4-5.0) 1.9 g/dL (3.4-5.0) Albumin/Globulin Ratio 0.5 (1.0-1.7) 0.5 (1.0-1.7) Microbiology 07/26/17 Blood Culture - Preliminary, Resulted NO GROWTH AFTER 4 DAYS Medications Current Medications Sodium Chloride 1,000 ml @ 1,000 mls/hr Q1H IV Last administered on 23:07; Start 07/26/17 at 22:30; Stop 07/26/17 at 23:29; Status DC Ondansetron HCl (Zofran) 8 mg 1X ONCE IV Last administered on 07/26/17 23:08 ; Start 07/26/17 at 22:30; Stop 07/26/17 at 22:31; Status DC Famotidine (Pepcid Vial) 20 mg 1X ONCE IVP Last administered on 07/26/17 23: 07; Start 07/26/17 at 22:30; Stop 07/26/17 at 22:31; Status DC Vancomycin HCl 1 gm/Sodium Chloride 250 ml @ 250 mls/hr 1X ONCE IV ; Start at 22:00; Stop 07/26/17 at 22:59; Status UNV Vancomycin HCl 2 gm/Sodium Chloride 500 ml @ 250 mls/hr 1X ONCE IV Last administered on 07/26/17 23:07; Start 07/26/17 at 23:00; Stop 07/27/17 at 00 :59; Status DC Vancomycin HCl (Vanco Per Pharmacy) 1 each PRN DAILY PRN MC SEE COMMENTS Last administered on 07/27/17 04:59; Start 07/26/17 at 22:30; Stop 07/27/17 at 19 :01; Status DC Sodium Chloride 500 ml @ As Directed STK-MED ONCE .ROUTE ; Start 07/26/17 at 22:55; Stop 07/26/17 at 22:56; Status DC Vancomycin HCl 1 gm STK-MED ONCE .ROUTE ; Start 07/26/17 at 22:55; Stop at 22:56; Status DC Metronidazole 100 ml @ 100 mls/hr 1X ONCE IV Last administered on 07/27/17 00:30; Start 07/27/17 at 00:30; Stop 07/27/17 at 01:29; Status DC Ceftriaxone Sodium 1 gm/ Sodium Chloride 50 ml @ 100 mls/hr 1X ONCE IV Last administered on 07/27/17 02:16; Start 07/27/17 at 00:30; Stop 07/27/17 at 19 :01; Status DC Sodium Chloride 50 ml @ As Directed STK-MED ONCE .ROUTE ; Start 07/27/17 at 02: 11; Stop 07/27/17 at 02:12; Status DC Ceftriaxone Sodium (Rocephin) 1 gm STK-MED ONCE IV ; Start 07/27/17 at 02:11; Stop 07/27/17 at 02:12; Status DC Sodium Chloride 1,000 ml @ 1,000 mls/hr Q1H IV Last administered on 06:16; Start 07/27/17 at 04:30; Stop 07/27/17 at 07:21; Status DC Sodium Chloride 1,000 ml @ 75 mls/hr [id number] IV Last administered on 17:31; Start 07/27/17 at 08:00; Stop 07/30/17 at 09:44; Status DC Vancomycin HCl 1.5 gm/Sodium Chloride 500 ml @ 250 mls/hr Q24H IV ; Start at 23:00; Stop 07/27/17 at 23:00; Status DC Vancomycin HCl 1 each 1X ONCE MC ; Start 07/28/17 at 22:30; Stop 07/28/17 at 22:31; Status Cancel Acetaminophen (Tylenol) 325 mg PRN Q8HRS PRN PO MILD PAIN; Start 07/27/17 at 07:30 Aspirin (Children'S Aspirin) 81 mg DAILY PO Last administered on 07/31/17 08: 34; Start 07/27/17 at 09:00 Enoxaparin Sodium (Lovenox) 40 mg DAILY SQ Last administered on 07/31/17 08: 33; Start 07/27/17 at 09:00 Guaifenesin (Mucinex Er) 600 mg BID PO Last administered on 07/31/17 08:32; Start 07/27/17 at 09:00 Albuterol/ Ipratropium (Duoneb) 3 ml BID NEB Last administered on 07/31/17 11 :17; Start 07/27/17 at 09:00 Nystatin (Nystop) 1 benitez BID TP Last administered on 07/30/17 20:17; Start at 09:00 Sertraline HCl (Zoloft) 100 mg DAILY PO Last administered on 07/31/17 08:34; Start 07/27/17 at 09:00 Simvastatin (Zocor) 40 mg DAILY PO Last administered on 07/31/17 08:32; Start 07/27/17 at 09:00 Tramadol HCl (Ultram) 50 mg PRN Q8HRS PRN PO PAIN; Start 07/27/17 at 07:30 Vitamin D (Vitamin D3) 5,000 unit DAILY PO Last administered on 07/31/17 08: 33; Start 07/27/17 at 09:00 Multivitamins/ Calcium (Thera-M Plus) 1 tab DAILY PO Last administered on 07/31 08:32; Start 07/27/17 at 09:00 Dopamine HCl/ Dextrose 250 ml @ 17.361 mls/ hr 1X ONCE IV Last administered on 07/27/17 09:40; Start 07/27/17 at 09:30; Stop 07/27/17 at 09:54; Status DC Magnesium Sulfate 50 ml @ 25 mls/hr 1X ONCE IV Last administered on 10:15; Start 07/27/17 at 10:00; Stop 07/27/17 at 11:59; Status DC Norepinephrine Bitartrate 8 mg/ Sodium Chloride 258 ml @ 0 mls/hr CONT PRN IV SEE I/O RECORD Last administered on 07/28/17 02:17; Start 07/27/17 at 10:00; Stop 07/30/17 at 09:44; Status DC Vancomycin HCl (Vanco Per Pharmacy) 1 each PRN DAILY PRN MC SEE COMMENTS; Start 07/27/17 at 10:00; Status UNV Metronidazole 100 ml @ 100 mls/hr Q8HRS IV Last administered on 07/28/17 13: 37; Start 07/27/17 at 14:00; Stop 07/28/17 at 16:59; Status DC Piperacillin Sod/ Tazobactam Sod 3.375 gm/Sodium Chloride 50 ml @ 100 mls/hr Q6H IV Last administered on 07/27/17 17:25; Start 07/27/17 at 10:00; Stop 07/27/17 at 19:01; Status DC Potassium Chloride (Klor-Con) 40 meq 1X ONCE PO Last administered on 12:13; Start 07/27/17 at 12:15; Stop 07/27/17 at 12:16; Status DC Vancomycin HCl 250 mg Q6HRS PO Last administered on 07/28/17 05:12; Start at 20:00; Stop 07/28/17 at 09:57; Status DC Lactobacillus Rhamnosus (Culturelle) 1 cap BID PO Last administered on 08:33; Start 07/27/17 at 21:00 Vancomycin HCl 125 mg Q6H PO Last administered on 07/31/17 05:10; Start at 12:00 Piperacillin Sod/ Tazobactam Sod (Zosyn Per Pharmacy) 1 each PRN DAILY PRN MC SEE COMMENTS; Start 07/28/17 at 17:00 Azithromycin 500 mg/Sodium Chloride 250 ml @ 250 mls/hr Q24H IV Last administered on 07/28/17 18:19; Start 07/28/17 at 17:00; Stop 07/29/17 at 12 :45; Status DC Piperacillin Sod/ Tazobactam Sod 3.375 gm/Sodium Chloride 50 ml @ 100 mls/hr Q6HRS IV Last administered on 07/31/17 05:10; Start 07/28/17 at 18:00 Magnesium Sulfate 50 ml @ 25 mls/hr 1X ONCE IV Last administered on 09:57; Start 07/29/17 at 08:00; Stop 07/29/17 at 09:59; Status DC Azithromycin (Zithromax) 500 mg Q24H PO Last administered on 07/30/17 17:00; Start 07/29/17 at 17:00 Potassium Chloride (Klor-Con) 40 meq 1X ONCE PO Last administered on 12:26; Start 07/30/17 at 12:30; Stop 07/30/17 at 12:31; Status DC Potassium Chloride (KCl Oral Soln) 40 meq Q4H PO ; Start 07/30/17 at 12:00; Stop 07/30/17 at 16:01; Status DC Magnesium Oxide (Magnesium Oxide) 400 mg BID PO Last administered on 08:33; Start 07/30/17 at 21:00; Stop 08/01/17 at 09:01 Active Scripts Active Reported Aspirin 81 Mg Tab.chew 81 Mg PO DAILY Lovenox (Enoxaparin Sodium) 40 Mg/0.4 Ml Disp.syrin 0.4 Ml SQ DAILY Tylenol (Acetaminophen) 325 Mg Tablet 1 Tab PO PRN Q8HRS PRN Mucinex (Guaifenesin) 600 Mg Tablet.er 1 Tab PO BID Duoneb 0.5-3(2.5) Mg/3 Ml (Albuterol/Ipratropium) 3 Ml Ampul.neb 3 Ml NEB BID Multivitamins (Multivitamin) 1 Each Tablet 1 Tab PO DAILY Nystatin 15 Gm Powder 15 Gm TP BID Tramadol Hcl (Tramadol HCl) 50 Mg Tablet 50 Mg PO PRN Q8HRS PRN Simvastatin 40 Mg Tablet 40 Mg PO DAILY Lisinopril 20 Mg Tablet 10 Mg PO DAILY Vitamin D3 (Cholecalciferol (Vitamin D3)) 5,000 Unit Tablet 1 Tab PO DAILY Zoloft (Sertraline Hcl) 100 Mg Tablet 1 Tab PO DAILY Vitals/I & O Vital Sign - Last 24 Hours 07/30/17 07/30/17 07/30/17 07/30/17 12:47 16:32 19:33 20:03 Temp 98.4 98.4 97.5 Pulse 88 78 77 Resp 19 19 18 B/P (MAP) 112/60 (77) 114/64 (81) 135/68 (90) Pulse Ox 94 94 95 O2 Delivery Nasal Cannula Room Air Nasal Cannula Nasal Cannula O2 Flow Rate 2.0 2.0 3.0 07/30/17 07/30/17 07/31/17 07/31/17 20:12 23:24 05:43 11:14 Temp 97.5 98.2 Pulse 64 83 83 Resp 16 18 20 B/P (MAP) 148/70 (96) 151/81 (104) 142/71 (94) Pulse Ox 95 94 93 92 O2 Delivery Room Air Room Air Room Air Room Air 07/31/17 11:17 Pulse Ox 94 O2 Delivery Room Air Intake and Output 07/30/17 07/30/17 07/31/17 15:00 23:00 07:00 Intake Total 230 ml Output Total 1025 ml Balance 230 ml -1025 ml Images Single view chest 07/31/2017 Clinical indication: Cough, pneumonia. Comparison: AP chest 07/28/2017 Findings: Left subclavian CVC in similar position. Cardiac and mediastinal silhouettes are unremarkable. Unchanged patchy bibasilar opacities. No definite pleural effusion or pneumothorax. Chronic fracture deformity of the proximal right humerus. Impression: Unchanged patchy bibasilar opacities. RITA HARTLEY MD Jul 31, 2017 12:47
[2017-07-31] MEDS ORDERED: POTASSIUM CHLORIDE 20 MEQ/15 ML ORAL LIQUID. PO ONE (13:00)
--- NOTE | 2017-07-31 13:20 | RAD ---
Single view chest 07/31/2017 Clinical indication: Cough, pneumonia. Comparison: AP chest 07/28/2017 Findings: Left subclavian CVC in similar position. Cardiac and mediastinal silhouettes are unremarkable. Unchanged patchy bibasilar opacities. No definite pleural effusion or pneumothorax. Chronic fracture deformity of the proximal right humerus. Impression: Unchanged patchy bibasilar opacities.
[2017-07-31 16:24] VITALS: BP 149/73
[2017-07-31] MEDS: AZITHROMYCIN 250 MG TABLET. PO SCH (17:00)
[2017-07-31 19:53] VITALS: BP 153/74
[2017-07-31 23:04] VITALS: BP 148/73
[2017-08-01] MEDS: VANCOMYCIN 125 MG/2.5 ML ORAL SOLUTION. PO SCH ×5 (00:30→23:18)
[2017-08-01 05:29] VITALS: BP 168/77
[2017-08-01 05:50] LABS: BASO % 1 % (0-3); EOS # 0.8 x10^3/uL (0.0-0.7); EOS % 9 % (0-3); HEMATOCRIT 30.6 % (39.0-53.0); HEMOGLOBIN 10.3 g/dL (13.0-17.5); LYMPH # 2.2 x10^3/uL (1.0-4.8); LYMPH % 24 % (24-48); MEAN CORPUSCULAR HEMOGLOBIN 30 pg (25-35); MEAN CORPUSCULAR HGB CONC 34 g/dL (31-37); MEAN CORPUSCULAR VOLUME 89 fL (79-100); MONO # 1.1 x10^3/uL (0.0-1.1); MONO % 12 % (0-9); NEUT # 5.1 x10^3uL (1.8-7.7); NEUT % 55 % (31-73); PLATELET COUNT 253 x10^3/uL (140-400); RED BLOOD COUNT 3.45 x10^6/uL (4.30-5.70); RED CELL DISTRIBUTION WIDTH 14.4 % (11.5-14.5); WHITE BLOOD COUNT 9.2 x10^3/uL (4.0-11.0)
[2017-08-01 05:53] LABS: CALCIUM 8.3 mg/dL (8.5-10.1); CREATININE 1.1 mg/dL (0.7-1.3); GFR 63.5; POTASSIUM 3.9 mmol/L (3.5-5.1)
[2017-08-01] MEDS: MULTIVITAMIN with MINERAL TABLET. PO SCH (09:02)
[2017-08-01] MEDS: LACTOBACILLUS RHAMNOSUS GG 1 CAPSULE. PO SCH ×2 (09:02→20:17)
[2017-08-01] MEDS: ASPIRIN 81 MG TAB.CHEW PO SCH (09:02)
[2017-08-01] MEDS: MAGNESIUM OXIDE 400 MG TABLET PO SCH (09:03)
[2017-08-01] MEDS: ENOXAPARIN 40 MG/0.4 ML DISP.SYRIN. SQ SCH (09:03)
[2017-08-01] MEDS: NYSTATIN TOPICAL POWDER 15GM BOTTLE. TP SCH ×2 (09:03→20:28)
[2017-08-01] MEDS: SIMVASTATIN 40 MG TABLET. PO SCH (09:03)
[2017-08-01] MEDS: SERTRALINE 100 MG TABLET. PO SCH (09:03)
[2017-08-01] MEDS: CHOLECALCIFEROL (VITAMIN D3) 1,000 UNIT TABLET PO SCH (09:03)
[2017-08-01] MEDS: IPRATRPIUM/ALBUTEROL 0.5/2.5MG 3 ML NEBU. NEB SCH ×2 (09:56→21:22)
[2017-08-01 11:40] VITALS: BP 168/74
[2017-08-01 15:22] VITALS: BP 106/74
[2017-08-01] MEDS: AZITHROMYCIN 250 MG TABLET. PO SCH (16:44)
[2017-08-01 19:55] VITALS: BP 135/73
[2017-08-01 21:42] VITALS: BP 136/82
[2017-08-01 23:02] VITALS: BP 124/79
[2017-08-02] MEDS: VANCOMYCIN 125 MG/2.5 ML ORAL SOLUTION. PO SCH (05:53)
[2017-08-02 06:00] VITALS: BP 154/61
[2017-08-02] MEDS: MULTIVITAMIN with MINERAL TABLET. PO SCH (09:22)
[2017-08-02] MEDS: ASPIRIN 81 MG TAB.CHEW PO SCH (09:22)
[2017-08-02] MEDS: CHOLECALCIFEROL (VITAMIN D3) 1,000 UNIT TABLET PO SCH (09:22)
[2017-08-02] MEDS: ENOXAPARIN 40 MG/0.4 ML DISP.SYRIN. SQ SCH (09:22)
[2017-08-02] MEDS: NYSTATIN TOPICAL POWDER 15GM BOTTLE. TP SCH (09:23)
[2017-08-02] MEDS: LACTOBACILLUS RHAMNOSUS GG 1 CAPSULE. PO SCH (09:23)
[2017-08-02] MEDS: SERTRALINE 100 MG TABLET. PO SCH (09:23)
[2017-08-02] MEDS: SIMVASTATIN 40 MG TABLET. PO SCH (09:23)
[2017-08-02] MEDS: IPRATRPIUM/ALBUTEROL 0.5/2.5MG 3 ML NEBU. NEB SCH (10:18)
[2017-08-02 10:45] VITALS: BP 176/81
[2017-08-02 11:54] VITALS: BP 170/77
== END 2017-08-02 12:18 | disposition home or self-care (01) | DRG 871 ==
LOC: ER 21:35 → ICU 23:59 → 1 SOUTH 07-30 17:13
PROVIDERS: ADMIT Family Medicine; ATTEND Family Medicine
PROC: 02HV33Z Insertion of Infusion Device into Superior Vena Cava, Percutaneous Approach (ICD-10-PCS; principal; 2017-07-27)
PROC: 5A09357 Assistance with Respiratory Ventilation, Less than 24 Consecutive Hours, Continuous Positive Airway Pressure (ICD-10-PCS; 2017-07-27)
DX: A41.9 Sepsis, unspecified organism (principal); R65.21 Severe sepsis with septic shock; E43 Unspecified severe protein-calorie malnutrition; N17.9 Acute kidney failure, unspecified; A04.72 Enterocolitis due to Clostridium difficile, not specified as recurrent; M48.55XA Collapsed vertebra, not elsewhere classified, thoracolumbar region, initial encounter for fracture; J18.1 Lobar pneumonia, unspecified organism; E86.0 Dehydration; E83.42 Hypomagnesemia; S42.91XA Fracture of right shoulder girdle, part unspecified, initial encounter for closed fracture; I12.9 Hypertensive chronic kidney disease with stage 1 through stage 4 chronic kidney disease, or unspecified chronic kidney disease; N18.9 Chronic kidney disease, unspecified; H91.90 Unspecified hearing loss, unspecified ear; E87.6 Hypokalemia; H35.30 Unspecified macular degeneration; Y95 Nosocomial condition; F32.9 Major depressive disorder, single episode, unspecified; M19.90 Unspecified osteoarthritis, unspecified site; Z96.649 Presence of unspecified artificial hip joint; E78.5 Hyperlipidemia, unspecified; Z68.36 Body mass index [BMI] 36.0-36.9, adult; X58.XXXA Exposure to other specified factors, initial encounter; Y93.89 Activity, other specified; Y92.89 Other specified places as the place of occurrence of the external cause; Y99.8 Other external cause status
CPT/HCPCS: 36415; 36556; 51701; 71010; 71250; 73030; 74022; 74176; 80048; 80053; 80076; 80307; 81001; 82553; 83605; 83690; 83735; 84145; 84484; 85007; 85025; 85610; 85730; 86850; 86900; 86901; 87040; 87324; 87641; 87804; 93005; 94640; 94760; 96365; 96375; J0456; J0696; J1265; J1650; J2405; J2543; J3370; J3475; J3490; J7040; J7050; J7620; S0028; 99285-25; G0479; J7030

== ENCOUNTER 2017-11-12 12:04 | Inpatient (IN) | payer MEDICARE, OTHER ==
[~2017-11-12] VITALS: Ht 162.6 cm; Wt 89.0 kg
[~2017-11-12 12:04] MED LIST changes: +ACET325T9 PO; +ASPI-630 PO; +GUAI600T47 PO; +IPRA3AMP NEB
[2017-11-12 12:31] LABS: BASO # 0.1 x10^3/uL (0.0-0.2); BASO % 1 % (0-3); EOS # 1.1 x10^3/uL (0.0-0.7); EOS % 9 % (0-3); HEMATOCRIT 36.6 % (39.0-53.0); LYMPH % 16 % (24-48); MEAN CORPUSCULAR HEMOGLOBIN 29 pg (25-35); MEAN CORPUSCULAR HGB CONC 33 g/dL (31-37); MEAN CORPUSCULAR VOLUME 87 fL (79-100); MONO # 0.9 x10^3/uL (0.0-1.1); MONO % 8 % (0-9); NEUT # 8.2 x10^3uL (1.8-7.7); NEUT % 67 % (31-73); PLATELET COUNT 495 x10^3/uL (140-400); RED BLOOD COUNT 4.21 x10^6/uL (4.30-5.70); RED CELL DISTRIBUTION WIDTH 16.4 % (11.5-14.5); WHITE BLOOD COUNT 12.3 x10^3/uL (4.0-11.0)
[2017-11-12 12:53] LABS: ALBUMIN 2.8 g/dL (3.4-5.0); ALBUMIN/GLOBULIN RATIO 0.5 (1.0-1.7); CALCIUM 9.2 mg/dL (8.5-10.1); CREATININE 1.4 mg/dL (0.7-1.3); GFR 48.1; POTASSIUM 4.2 mmol/L (3.5-5.1); TOTAL BILIRUBIN 0.3 mg/dL (0.2-1.0)
--- NOTE | 2017-11-12 12:53 | RAD ---
AP portable chest radiograph 11/12/2017 Clinical History: Shortness of breath. Syncope. Two AP portable erect digital radiographs of the chest were obtained. Comparison study is dated 07/31/2017. The left subclavian central venous catheter has been removed. The cardiac silhouette is mildly enlarged. The thoracic aorta is tortuous. Atherosclerotic calcification of the thoracic aorta is seen. Blunting of both costophrenic angles is seen consistent with small bilateral pleural effusions. Subsegmental atelectasis is seen involving the left lower lobe. Prominence of the pulmonary vasculature is seen which could reflect mild CHF. Subsegmental atelectasis is seen involving the right lower lobe. No pneumothorax is seen. The osseous structures are unchanged. Impression: Prominence of the pulmonary vasculature is seen which could reflect mild CHF.
[2017-11-12] MEDS ORDERED: IOHEXOL 300 MG/ML 75 ML VIAL. IV ONE (14:45)
--- NOTE | 2017-11-12 15:28 | RAD ---
Indication: Shortness of breath., Syncope. Elevated d-dimer. TECHNIQUE: CT angiogram chest with MIP reformats. COMPARISON: None FINDINGS: Diagnostic quality PE study. There are no central, segmental or subsegmental filling defects in the pulmonary arteries. Heart is normal in size. No pericardial effusion. Small right and trace left pleural effusion noted. Diffuse atherosclerotic disease of the aortic arch and thoracic aorta noted. No axillary, mediastinal or hilar adenopathy. Coronary artery calcifications noted. Consolidation is seen in the bilateral lower lobes. Chronic interstitial changes are seen in the lungs. Visualized sections through the liver, spleen, adrenals are within normal limits. Bilateral shoulder joint osteoarthritis. No suspicious bony lesion. Couple of old healed rib fractures seen on the left side. Stable compression deformity of T10 vertebral body noted in compared to previous study from July 27, 2017. IMPRESSION: 1. No PE. 2. Bibasilar consolidation, right more than left may be secondary to passive atelectasis or pneumonia. 3. Mild bilateral interstitial prominence may suggest superimposed very mild interstitial pulmonary edema. Electronically signed by: Joshua Alonso DO (11/12/2017 3:26 PM) [facility]
--- NOTE | 2017-11-12 15:54 | PHYS DOC ---
Past History Past Medical History: No Pertinent History, High Cholesterol, Hip Fracture, Hypertension, Pneumonia, Other Past Surgical History: Hip Replacement Alcohol Use: None Drug Use: None Adult General Chief Complaint Chief Complaint: SYNCOPE HPI HPI Patient is a 86-year-old male who was brought to the ED by EMS from [facility], where he lives. EMS reports that the patient was eating ready for a shower, he was sitting in a chair and being observed by staff, and he went out " for about 10 seconds. He did not fall out of the chair or hurt himself, and he came back around pretty quickly. When they arrived, the patient was alert, but they thought he seemed a little short of breath, and his pulse ox was in the mid 80s. They put him on 2 L of oxygen. They gave him 300 mL of normal saline and without "dehydration". The patient arrives to the ED alert and talkative. He states he hurts "all over" but this is been going on for some years. It sounds like maybe it's because of arthritis. He recalls that he felt "woozy". He is very talkative but really does not contribute anything else to the history. Review of Systems Review of Systems Constitutional: Denies fever or chills [] Eyes: Denies change in visual acuity, redness, or eye pain [] HENT: Denies nasal congestion or sore throat [] Respiratory: Patient does not believe he is always short of breath Cardiovascular: A she denies chest pain GI: Denies abdominal pain, nausea, vomiting, bloody stools or diarrhea [] : Denies dysuria or hematuria [] Musculoskeletal: He hurts all over" including his back, arms and legs. This is chronic. Integument: Denies rash or skin lesions [] Neurologic: Denies headache, focal weakness or sensory changes [] Current Medications Current Medications Current Medications Medications (Trade) Dose Ordered Sig/Eleanor Start Time Stop Time Status Last Admin Dose Admin Iohexol (Omnipaque 300 Mg/ml) 60 ml 1X ONCE 11/12/17 14:45 11/12/17 14:46 DC Allergies Allergies Allergies Coded Allergies Type Severity Reaction Last Updated Verified No Known Drug Allergies 06/28/17 No Physical Exam Physical Exam Constitutional: Well developed, well nourished, no acute distress, non-toxic appearance. Alert, mentating normally, warm and dry. HENT: Normocephalic, atraumatic, bilateral external ears normal, nose normal. [ ] Eyes: conjunctiva normal, no discharge. [] Neck: Normal range of motion, no stridor. [] Cardiovascular:Heart rate regular rhythm, no murmur [] Lungs & Thorax: Bilateral breath sounds clear to auscultation with good air movement throughout and no rales Abdomen: Bowel sounds normal, soft, no tenderness, no masses, no pulsatile masses. [] Skin: Warm, dry, no erythema, no rash. [] Extremities: No tenderness, no cyanosis, no clubbing, 2+ foot/ankle/lower extremity edema bilaterally. Bandage is in place on the toes, skin lesion on the dorsum of the right foot. Neurologic: Alert and oriented X 3, normal motor function, normal sensory function, no focal deficits noted. [] Current Patient Data Lab Results Laboratory Tests Test 11/12/17 12:17 White Blood Count 12.3 x10^3/uL (4.0-11.0) H Red Blood Count 4.21 x10^6/uL (4.30-5.70) L Hemoglobin 12.0 g/dL (13.0-17.5) L Hematocrit 36.6 % (39.0-53.0) L Mean Corpuscular Volume 87 fL (79-100) Mean Corpuscular Hemoglobin 29 pg (25-35) Mean Corpuscular Hemoglobin Concent 33 g/dL (31-37) Red Cell Distribution Width 16.4 % (11.5-14.5) H Platelet Count 495 x10^3/uL (140-400) H Neutrophils (%) (Auto) 67 % (31-73) Lymphocytes (%) (Auto) 16 % (24-48) L Monocytes (%) (Auto) 8 % (0-9) Eosinophils (%) (Auto) 9 % (0-3) H Basophils (%) (Auto) 1 % (0-3) Neutrophils # (Auto) 8.2 x10^3uL (1.8-7.7) H Lymphocytes # (Auto) 2.0 x10^3/uL (1.0-4.8) Monocytes # (Auto) 0.9 x10^3/uL (0.0-1.1) Eosinophils # (Auto) 1.1 x10^3/uL (0.0-0.7) H Basophils # (Auto) 0.1 x10^3/uL (0.0-0.2) D-Dimer (Shikha) 4.67 mg/L (0.00-0.50) H Sodium Level 143 mmol/L (136-145) Potassium Level 4.2 mmol/L (3.5-5.1) Chloride Level 105 mmol/L (98-107) Carbon Dioxide Level 25 mmol/L (21-32) Anion Gap 13 (6-14) Blood Urea Nitrogen 27 mg/dL (8-26) H Creatinine 1.4 mg/dL (0.7-1.3) H Estimated GFR (Cockcroft-Gault) 48.1 BUN/Creatinine Ratio 19 (6-20) Glucose Level 134 mg/dL (70-99) H Calcium Level 9.2 mg/dL (8.5-10.1) Total Bilirubin 0.3 mg/dL (0.2-1.0) Aspartate Amino Transferase (AST) 26 U/L (15-37) Alanine Aminotransferase (ALT) 35 U/L (16-63) Alkaline Phosphatase 116 U/L (46-116) Creatine Kinase 29 U/L (39-308) L Creatine Kinase MB (Mass) 1.0 ng/mL (0.0-3.6) Creatine Kinase MB Relative Index 3.4 % (0-4) Troponin I Quantitative < 0.017 ng/mL (0-0.055) FV-Fdm-M-Type Natriuretic Peptide 1801 pg/mL (0-449) H Total Protein 8.0 g/dL (6.4-8.2) Albumin 2.8 g/dL (3.4-5.0) L Albumin/Globulin Ratio 0.5 (1.0-1.7) L EKG EKG 12-lead EKG read by me. Sinus rhythm. Heart rate 77. There are no acute ST or T wave changes indicative of ischemia or infarction. No STEMI. 1221[] Radiology/Procedures Radiology/Procedures One view portable chest x-ray read by me. No acute findings. CT angiography of the chest read by the radiologist. No PE. Some interstitial fluid and also some interstitial infiltrate.[] Course & Med Decision Making Course & Med Decision Making Pertinent Labs and Imaging studies reviewed. (See chart for details) 86-year-old male presents by EMS from his senior care after a brief syncopal episode, he did not fall and was not injured. The patient presents here alert with no clear-cut indication as to why he had a syncopal episode. His vital signs are stable. It was reported that he appeared a little short of air and was satting in the mid 80s. D-dimer here is elevated. I did order CT angiography of his chest which is negative for PE. That did indicate some pneumonia and some CHF however. His BNP is elevated as well. We will treat him for pneumonia and congestive heart failure. I started him on IV furosemide and antibiotics. I discussed the case with Dr. Bruce, who will admit the patient. I wrote bridge orders. [] Dragon Disclaimer Dragon Disclaimer This electronic medical record was generated, in whole or in part, using a voice recognition dictation system. Departure Departure: Impression: Primary Impression: Syncope Additional Impressions: Pneumonia CHF (congestive heart failure) Disposition: ADMITTED INPATIENT Admitting Physician: Daniel Bruce Condition: STABLE Referrals: JENSEN VALDEZ DO (PCP) Problem Qualifiers YOEL MA MD Nov 12, 2017 15:54
[2017-11-12] MEDS ORDERED: FUROSEMIDE 40 MG/4 ML VIAL IVP ONE (16:00)
--- NOTE | 2017-11-12 16:34 | EKG ---
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
[2017-11-12 17:30] VITALS: BP 168/88
[2017-11-12] MEDS ORDERED: LACT1CAP2 PO (18:40)
[2017-11-12] MEDS ORDERED: AMLO5TAB2 PO (18:43)
[2017-11-12] MEDS ORDERED: DONE5TAB7 PO (18:44)
[2017-11-12] MEDS ORDERED: MELA3TAB2 PO (18:46)
[2017-11-12] MEDS ORDERED: ASCO500T2 PO (18:47)
[2017-11-12] MEDS ORDERED: IBUP400T18 PO (18:48)
[2017-11-12] MEDS ORDERED: ZINC220C5 PO (18:49)
[2017-11-12] MEDS ORDERED: ACETAMINOPHEN 325 MG TABLET PO PRN (19:15)
[2017-11-12 19:48] LABS: CLARITY,URINE CLEAR; COLOR,URINE STRAW; GLUCOSE,URINE NEG (NEG)
[2017-11-12 19:49] LABS: BACTERIA,URINE 0 /HPF (0-FEW); BILIRUBIN,URINE NEG (NEG); NITRITE,URINE NEG (NEG); RBC,URINE 0 /HPF (0-2); SQUAMOUS EPITHELIAL CELL,UR OCC /LPF; UROBILINOGEN,URINE 0.2 mg/dL (0.2 mg/dL); WBC,URINE OCC /HPF (0-4)
[2017-11-12] MEDS: ATORVASTATIN CALCIUM 10 MG TABLET. PO SCH (20:52)
[2017-11-12] MEDS: MELATONIN 3 MG TABLET PO SCH (20:52)
[2017-11-12] MEDS: LACTOBACILLUS RHAMNOSUS GG 1 CAPSULE. PO SCH (20:52)
[2017-11-12] MEDS: DONEPEZIL HCL 5 MG TABLET. PO SCH (20:52)
[2017-11-12] MEDS: IBUPROFEN 400 MG TABLET. PO SCH (20:52)
[2017-11-12] MEDS: IPRATRPIUM/ALBUTEROL 0.5/2.5MG 3 ML NEBU. NEB SCH (21:00)
[2017-11-13] VITALS (7 sets, daily range): BP systolic 128–150; BP diastolic 62–89
[2017-11-13] MEDS ORDERED: ACETAMINOPHEN 325 MG TABLET PO PRN (01:30)
[2017-11-13] MEDS: IPRATRPIUM/ALBUTEROL 0.5/2.5MG 3 ML NEBU. NEB SCH ×2 (05:32→20:59)
[2017-11-13] MEDS ORDERED: ACET500T68 PO (07:38)
[2017-11-13] MEDS: ASPIRIN 81 MG TAB.CHEW PO SCH (07:42)
[2017-11-13] MEDS: ACETAMINOPHEN 500 MG TABLET PO SCH ×4 (07:46→20:39)
[2017-11-13] MEDS: CHOLECALCIFEROL (VITAMIN D3) 1,000 UNIT TABLET PO SCH (08:45)
[2017-11-13] MEDS: MULTIVITAMIN with MINERAL TABLET. PO SCH (08:45)
[2017-11-13] MEDS: amLODIPine BESYLATE 5 MG TABLET PO SCH (08:46)
[2017-11-13] MEDS: IBUPROFEN 400 MG TABLET. PO SCH ×3 (08:46→20:39)
[2017-11-13] MEDS: LACTOBACILLUS RHAMNOSUS GG 1 CAPSULE. PO SCH ×2 (08:46→20:40)
[2017-11-13] MEDS: SERTRALINE 100 MG TABLET. PO SCH (08:47)
[2017-11-13] MEDS: ZINC SULFATE 220 MG CAPSULE. PO SCH (08:47)
[2017-11-13] MEDS: ASCORBIC ACID 500 MG TABLET PO SCH (08:47)
[2017-11-13] MEDS ORDERED: FUROSEMIDE 20 MG/2 ML VIAL IVP ONE (13:30)
[2017-11-13] MEDS: HEPARIN PF for SUB-Q USE 5,000 UNIT/0.5 ML VIAL. SQ SCH ×2 (14:32→21:10)
--- NOTE | 2017-11-13 15:04 | HP ---
ADMIT DATE: 11/13/2017 HISTORY OF PRESENT ILLNESS: The patient is an 86-year-old male patient, a resident at [facility], who was brought to the Emergency Room by emergency medical service personnel from [facility] where he lives. The medical services reports that the patient was eating, ready for a shower, he was sitting in a chair and being observed by staff and he went out for about 10 seconds. He did not fall out of the chair or hurts himself. He came back around pretty quickly. When they arrived, the patient was alert, but they thought he seemed a little short of breath. His pulse oximetry was in the mid 80s. He was put on 2 liters of oxygen, was given 300 mL of normal saline and by the time he arrived to the Emergency Room he was alert, talkative. He stated that he is hurting all over, but this has been going on for some years because of arthritis; however, he could not give any further details about the syncopal episode. He apparently was investigated extensively in the Emergency Room and was found to have his chest x-ray showed that he has prominence of pulmonary vasculature seen, which could represent mild congestive heart failure because of his D-dimer was high. He underwent CT angio of the chest, which basically showed that he has no pulmonary embolism, but he has bilateral basilar consolidation, right more than left, may be secondary to passive atelectasis or pneumonia. Mild bilateral interstitial prominence which suggest superimposed, very mild pulmonary edema. The patient was admitted with syncope, pneumonia as well as congestive heart failure. He was given Lasix as well as levofloxacin and was admitted to continue treatment of his heart failure as well as pneumonia. The patient is usually bedbound, wheelchair bound. He does not walk. PAST MEDICAL HISTORY: Significant for chronic anemia, hypertension, osteoarthritis, senile macular degeneration, depression, hyperlipidemia, bilateral sensorineural deafness with hearing aids. He has also left leg fracture. PAST SURGICAL HISTORY: Significant for right hip fracture, status post open reduction and internal fixation and left leg fracture, status post open reduction and internal fixation. ALLERGIES: He has no known drug allergies. MEDICATIONS: He is currently on following medications: He is on Aricept 5 mg at bedtime, ipratropium bromide/albuterol sulfate 0.5-2.5 mg in 3 mL by nebulizer twice a day, simvastatin 40 mg daily. He is on 5 mg daily, aspirin 81 mg once a day, ibuprofen 400 mg 3 times a day, acetaminophen 500 mg q.4 hourly, sertraline 100 mg daily, zinc sulfate 220 mg once a day, lactobacillus acidophilus 1 twice a day, ascorbic acid 500 mg daily, Cholecalciferol for vitamin D3 5000 units once a day, multivitamin 1 tablet once a day, melatonin 3 mg at bedtime. FAMILY HISTORY: Unremarkable and noncontributory. SOCIAL HISTORY: He currently resides at [facility] in [place]. He has retired from the [employer]. He is a nonsmoker. The daughter involved in his care. REVIEW OF SYSTEMS: As per history of present illness. PHYSICAL EXAMINATION: GENERAL: On arrival to the Emergency Room, the patient was already awake, alert and over talkative according to the ER physician. He was pale, but no jaundice, cyanosis, or thyromegaly. No jugular venous distension. No lower limb edema. VITAL SIGNS: His heart rate was 82, blood pressure was 168/88, temperature was 98.2, respiratory rate was 16 and oxygen saturation was 94%. HEAD, EYES, EARS, NOSE AND THROAT: Showed normocephalic, atraumatic. NECK: Supple. HEART: Showed normal first and second heart sounds with no gallop, rub or murmur. CHEST: Clear to auscultation. No crepitation or rhonchi. ABDOMEN: Distended, soft, nontender. No guarding or rigidity. No organomegaly. All hernial orifices intact. Bowel sounds normal. NEUROLOGIC: He was awake, alert, at times confused. He was talking to people, who were not there in the room; however, all his cranial nerves are intact. He moves upper extremities to much good extent. EXTREMITIES: He is mostly bed bound, wheelchair bound. LABORATORY DATA: On arrival showed a white cell count 12,300, hemoglobin 12, hematocrit 36.6, MCV 87 and platelet count of 495,000. His chemistry showed a serum sodium 143, potassium 4.2, chloride 105, bicarbonate 25, anion gap of 13, BUN 27, creatinine 1.4, estimated GFR was 48 mL per minute, his glucose was 134. Calcium was 9.2. Total bilirubin, AST, ALT, alkaline phosphatase were normal. His beta natriuretic peptide was 1800. Total protein was 8, albumin 2.8. His D-dimer was high at 4.67. Urinalysis was essentially unremarkable and practically negative. His chest x-ray showed that the left subclavian central venous catheter has been removed. The cardiac silhouette is mildly enlarged. The thoracic aorta is tortuous. He has atherosclerotic calcification of the thoracic aorta is seen. Blunting of both costophrenic angles is seen consistent with small bilateral pleural effusion, subsegmental atelectasis seen involving the left lower lobe, prominence of the pulmonary vasculature is seen, which could reflect mild congestive heart failure, subsegmental atelectasis seen involving the right lower lobe. No pneumothorax seen. The osseous structures are unclear. Given the syncopal episode and elevated D-dimer he underwent CT angio of the chest and this showed that there are no central segmental or subsegmental filling defects in the pulmonary arteries. Heart is normal in size. No pericardial effusion. Small right and trace left pleural effusion, diffuse atherosclerotic disease of the aortic arch and thoracic aorta noted. No axillary, mediastinal or hilar lymphadenopathy. Coronary artery calcification noted. Consolidation is seen in the bilateral lower lobes. Chronic interstitial changes are seen in the lungs. Visualized sections through the liver, spleen. Adrenals are within normal limits, bilateral shoulder joint osteoarthritis. No suspicious bony lesions. Couple of old healed rib fracture seen in the left side. Stable compression deformity of T10, vertebral body noted as compared to previous study from July 2017 and the conclusion is that the patient has no pulmonary emboli. He has bibasilar consolidation, right more than left, may be secondary to passive atelectasis and/or pneumonia, mild bilateral interstitial prominence, may suggest superimposed and very mild residual pulmonary edema. ASSESSMENT AND PLAN: The patient was admitted with what seemed to be syncopal episode, congestive heart failure and healthcare-associated pneumonia. His serum creatinine has been around 1-1.3, probably has chronic kidney disease stage 3. My plan is to continue with IV Lasix, continue with IV Levaquin. Repeat all his labs tomorrow and decide on further management accordingly. We will also arrange for him to be on heparin 5000 units subcutaneously for DVT prophylaxis. Get physical and occupational therapy, although apparently the patient is mostly bedbound, chair bound. VAZQUEZ LAST MD DR: JOHANNA/cleo JOB#: [id number] / [id number]
[2017-11-13] MEDS: DONEPEZIL HCL 5 MG TABLET. PO SCH (20:39)
[2017-11-13] MEDS: MELATONIN 3 MG TABLET PO SCH (20:39)
[2017-11-13] MEDS: ATORVASTATIN CALCIUM 10 MG TABLET. PO SCH (20:39)
[2017-11-14 02:55] VITALS: BP 140/65
[2017-11-14] MEDS: ACETAMINOPHEN 500 MG TABLET PO SCH ×4 (04:00→11:36)
[2017-11-14] MEDS: HEPARIN PF for SUB-Q USE 5,000 UNIT/0.5 ML VIAL. SQ SCH (06:00)
[2017-11-14 06:30] VITALS: BP 165/78
[2017-11-14 07:21] LABS: BASO # 0.1 x10^3/uL (0.0-0.2); BASO % 1 % (0-3); EOS # 0.9 x10^3/uL (0.0-0.7); EOS % 9 % (0-3); HEMATOCRIT 33.3 % (39.0-53.0); LYMPH # 1.9 x10^3/uL (1.0-4.8); LYMPH % 19 % (24-48); MEAN CORPUSCULAR HEMOGLOBIN 28 pg (25-35); MEAN CORPUSCULAR HGB CONC 33 g/dL (31-37); MEAN CORPUSCULAR VOLUME 86 fL (79-100); MONO # 0.9 x10^3/uL (0.0-1.1); MONO % 9 % (0-9); NEUT # 6.3 x10^3uL (1.8-7.7); NEUT % 62 % (31-73); PLATELET COUNT 421 x10^3/uL (140-400); RED BLOOD COUNT 3.89 x10^6/uL (4.30-5.70); RED CELL DISTRIBUTION WIDTH 15.9 % (11.5-14.5); WHITE BLOOD COUNT 10.1 x10^3/uL (4.0-11.0)
[2017-11-14 07:35] LABS: ALBUMIN 2.7 g/dL (3.4-5.0); ALBUMIN/GLOBULIN RATIO 0.5 (1.0-1.7); CALCIUM 9.3 mg/dL (8.5-10.1); CREATININE 1.6 mg/dL (0.7-1.3); GFR 41.2; POTASSIUM 3.9 mmol/L (3.5-5.1); TOTAL BILIRUBIN 0.3 mg/dL (0.2-1.0); TOTAL PROTEIN 7.7 g/dL (6.4-8.2)
[2017-11-14] MEDS: LACTOBACILLUS RHAMNOSUS GG 1 CAPSULE. PO SCH (08:50)
[2017-11-14] MEDS: CHOLECALCIFEROL (VITAMIN D3) 1,000 UNIT TABLET PO SCH (08:50)
[2017-11-14] MEDS: MULTIVITAMIN with MINERAL TABLET. PO SCH (08:50)
[2017-11-14] MEDS: amLODIPine BESYLATE 5 MG TABLET PO SCH (08:51)
[2017-11-14] MEDS: SERTRALINE 100 MG TABLET. PO SCH (08:51)
[2017-11-14] MEDS: ASCORBIC ACID 500 MG TABLET PO SCH (08:51)
[2017-11-14] MEDS: IBUPROFEN 400 MG TABLET. PO SCH (08:52)
[2017-11-14] MEDS: ASPIRIN 81 MG TAB.CHEW PO SCH (08:52)
[2017-11-14] MEDS: ZINC SULFATE 220 MG CAPSULE. PO SCH (08:53)
[2017-11-14] MEDS ORDERED: FUROSEMIDE 40 MG/4 ML VIAL IVP SCH (09:00)
[2017-11-14] MEDS ORDERED: levoFLOXacin 500 MG TABLET PO SCH (10:30)
[2017-11-14] MEDS: IPRATRPIUM/ALBUTEROL 0.5/2.5MG 3 ML NEBU. NEB SCH (11:02)
[2017-11-14 11:16] VITALS: BP 124/55
[2017-11-14] MEDS ORDERED: NYSTATIN TOPICAL POWDER 15GM BOTTLE. TP SCH (21:00)
--- NOTE | 2017-11-14 22:12 | DS ---
DATE OF DISCHARGE: 11/14/2017 HOSPITAL COURSE: The patient is an 86-year-old male patient, a resident at [facility], who was brought to the Emergency Room as he has what seemed to be syncopal episode. He was extensively investigated, and basically, his lab work showed mild leukocytosis with a white cell count 12,300. CT angio showed that the patient has no pulmonary emboli, but apparently has bibasilar consolidation, right more than left, may be secondary to passive atelectasis or pneumonia. He has also mild bilateral interstitial prominence, may suggest superimposed very mild interstitial pulmonary edema. The patient did well. We did start him on Levaquin, was given dose of Lasix. He remained stable. He has no further episode of syncope. OBJECTIVE: GENERAL: When I examined him this morning, he looked pale. No jaundice, cyanosis, or thyromegaly. No jugular venous distension. No limb edema. VITAL SIGNS: His heart rate was 74, blood pressure was 165/78, temperature was 97.6, respiratory rate was 20, and oxygen saturation was 94% on room air. HEAD, EYES, EARS, NOSE AND THROAT: Normocephalic, atraumatic. NECK: Supple. HEART: Showed normal first and second heart sounds with no gallop, rub or murmur. CHEST: Clear to auscultation. No crepitation or rhonchi. ABDOMEN: Distended, soft, nontender. No guarding or rigidity. No organomegaly. All hernial orifices intact. Bowel sounds normal. NEUROLOGIC: He is awake, alert, at times confused. All his cranial nerves are intact. He moves upper extremities to much good extent than his lower extremities. He is mostly bed bound and chair bound. His intake over the last 24 hours was 400, output was 1550. LABORATORY DATA: As of this morning showed a white cell count of 10,000, hemoglobin 11, hematocrit 33, MCV 86 and platelet count 421,000 with normal manual differential. His chemistry showed a serum sodium 142, potassium 3.9, chloride 105, bicarbonate 25, anion gap of 12, BUN 31, creatinine 1.6. Estimated GFR was 41 mL per minute. Glucose 109, calcium was 9.3, magnesium 2. Total bilirubin, AST, ALT, alkaline phosphatase were normal. Total protein was 7.7, albumin was 2.7. DISCHARGE MEDICATIONS: He was discharged back to [facility] to continue Tylenol 650 mg every 4 hours, amlodipine besylate 5 mg once a day, ascorbic acid 500 mg daily, aspirin 81 mg once a day, vitamin D3 5000 units daily, Aricept 5 mg at bedtime, ibuprofen 400 mg 3 times a day, ipratropium bromide/albuterol sulfate for DuoNeb twice a day, lactobacillus acidophilus twice a day, melatonin 3 mg at bedtime, multivitamin 1 tablet once a day, sertraline for Zoloft 100 mg once a day, simvastatin 40 mg at bedtime, zinc sulfate 220 mg once a day and Levaquin 500 mg once a day for 7 days. FINAL DISCHARGE DIAGNOSES: 1. Syncopal episode. 2. Healthcare-associated pneumonia. 3. Hypertension. 4. Hyperlipidemia. 5. Bilateral sensorineural deafness. 6. Osteoarthritis. 7. Senile macular degeneration. VAZQUEZ LAST MD DR: JOHANNA/cleo JOB#: [id number] / [id number]
== END 2017-11-14 15:24 | disposition home or self-care (01) | DRG 291 ==
LOC: ER 12:04 → ICU 16:41
PROVIDERS: ADMIT Internal Medicine; ATTEND Internal Medicine
DX: I11.0 Hypertensive heart disease with heart failure (principal); J18.9 Pneumonia, unspecified organism; E86.0 Dehydration; H90.3 Sensorineural hearing loss, bilateral; J98.11 Atelectasis; E78.5 Hyperlipidemia, unspecified; F32.9 Major depressive disorder, single episode, unspecified; H35.30 Unspecified macular degeneration; M19.90 Unspecified osteoarthritis, unspecified site; Y95 Nosocomial condition; R55 Syncope and collapse; Z96.649 Presence of unspecified artificial hip joint; Z99.3 Dependence on wheelchair; Z87.81 Personal history of (healed) traumatic fracture; Z74.01 Bed confinement status; Z87.01 Personal history of pneumonia (recurrent); I50.33 Acute on chronic diastolic (congestive) heart failure
CPT/HCPCS: 36415; 71045; 71275; 80053; 81001; 82553; 83735; 83880; 84443; 84484; 85025; 85379; 87641; 93005; 94640; 96365; 96375; J1940; J1956; J7620; 99285-25